=== PATIENT | male | born 1955 | race Caucasian/White ===

== ENCOUNTER → 2025-05-01 11:59 | Outpatient (REF) | payer MEDICARE, SELFPAY ==
[2025-05-01 13:37] LABS: % Basophils 1.2 % (0-2); % Eosinophils 1.9 % (0-6); % Immature Granulocytes 0.9 % (0-0.5); % Lymphocytes 26.3 % (20.5-51.1); % Monocytes 15.5 % (1.7-9.3); % Neutrophils 54.2 % (42.2-75.2); Absolute Eosinophils 0.1 10^3/uL (0-0.7); Absolute Lymphocytes 0.9 10^3/uL (1.2-3.4); Absolute Monocytes 0.5 10^3/uL (0.1-0.6); Absolute Neutrophils 1.8 10^3/uL (1.4-6.5); Hemoglobin 10.8 g/dL (13.0-18.0); Mean Corp Hgb Conc. 30.9 g/dL (33.0-37.0); Mean Corpuscular Hgb 33.4 pg (27.0-31.0); Mean Corpuscular Volume 108.4 fL (80.0-94.0); Mean Platelet Volume 10.4 fL (7.4-10.4); Nucleated Red Blood Cells % 0 % (-); Platelet Count 465 10^3/uL (130-400); Red Blood Cell Count 3.23 10^6/uL (4.70-6.10); Red Cell Dist. Width 15.9 % (11.5-14.5); White Blood Cell Count 3.2 10^3/uL (4.8-10.8)
[2025-05-01 13:46] LABS: INR 1.49; PT 18.2 Sec (11.4-14.6)
[2025-05-01 13:51] LABS: ALT (SGPT) 11 U/L (0-50); AST (SGOT) 14 U/L (17-59); Alkaline Phosphatase 55 U/L (38-126); Blood Urea Nitrogen 17 mg/dl (9-20); Calcium 9.1 mg/dl (8.4-10.2); Carbon Dioxide 26 mmol/L (22-30); Chloride 108 mmol/L (98-107); Glucose 104 mg/dl (70-99); Potassium 4.7 mmol/L (3.5-5.1); Sodium 139 mmol/L (135-145); Total Bilirubin 0.6 mg/dl (0.2-1.3); Total Protein 6.4 g/dl (6.3-8.2); eGFR > 60.00
== END ==
LOC: REG 11:59
PROVIDERS: ATTENDING PHYSICIAN Internal Medicine Cardiovascular Disease; FAMILY PHYSICIAN Family Medicine; OTHER PHYSICIAN Internal Medicine Interventional Cardiology
DX: I48.0 Paroxysmal atrial fibrillation (principal); Z01.818 Encounter for other preprocedural examination
CPT/HCPCS: 36415; 80053; 83735; 85025; 85610; 86850; 86900; 86901; 93005

== ENCOUNTER 2025-05-07 05:54 | Day surgery (SDC) | payer MEDICARE, SELFPAY ==
[2025-05-01 12:58] VITALS: BMI 25.1
[2025-05-07] VITALS (12 sets, daily range): BP systolic 114–165; BP diastolic 52–76; BMI 24.6
[2025-05-07 06:39] LABS: Glucose - Point of Care 89 mg/dl (70-99)
[2025-05-07 07:12] LABS: INR 1.91; PT 22.1 Sec (11.4-14.6)
[2025-05-07 08:25] LABS: ACT-LR - POC 306 Seconds (116-155)
[2025-05-07 08:46] LABS: ACT-LR - POC 306 Seconds (116-155)
[2025-05-07 09:09] LABS: ACT-LR - POC 395 Seconds (116-155)
--- NOTE | 2025-05-07 09:51 | ITS.CL.ABL ---
Alcohol Rubber - Ablation
Ablation
Procedure Report:
ELECTROPHYSIOLOGIC STUDY AND POSSIBLE ABLATION
DATE: 05/07/25
Primary Care Provider: Dr Saira Olsen
Primary Policy Writer: Dr Richie Eng
INDICATION:
Symptomatic Atrial Fibrillation.
Paroxysmal
HISTORY: See H and P.
Symptomatic AF, poorly controlled with attempted medical therapy
He has a history of heart failure with preserved ejection fraction, non-ST segment elevation myocardial infarction with known proximal LAD and distal RCA disease treated with drug-eluting stent of the LAD (October 2024 at [facility]
system) and medical management of a small RCA, mechanical ([facility], 2002)�aortic valve replacement, chronic anticoagulation with warfarin, solitary kidney status post renal transplant in the past and continuing on immunosuppressive therapy as per
nephrology, stage III chronic kidney disease, diabetes mellitus, HTN and atrial fibrillation.
He has symptomatic paroxysmal atrial fibrillation.
Recurrences of atrial fibrillation have been associated with decompensated heart failure as well as shortness of breath and chest pain resulting in emergency room visits.� Rates in atrial fibrillation have been rapid at times.s delivery of atrial
decremental extrastimuli down to atrial ERP failed to induce any sustained arrhythmias.
HAS-BLED: 3
Age
Abnormal Renal Function
Antiplatelet Therapy
CHADSVASc: 5
HFpEF
HTN
Age
DM
Vascular Dz: prior MT
PRESENTING RHYTHM: SR
HISTORY: See H and P.
Symptomatic AF, poorly controlled with attempted medical therapy.
ANTICOAGULATION: Warfarin with goal INR between 2 and 3
'TIME-OUT': called and confirmed.
SEDATION/ANESTHESIA: provided via the anesthesia department using general anesthesia.
PROCEDURE:
Ultrasound Guidance with real-time visualization of needle insertion and vessel patency performed by me for femoral venous Vascular Access.
Under real-time US guidance, the needle was advanced with negative pressure into the vein. The needle was seen entering the vessel lumen with a good return of dark red flow, the syringe was removed, non-pulsatile, dark red blood low was noted and
the wire was passed without difficulty, then the needle was removed. US confirmed the wire was in the vein, not going into an artery,
Images were taken and saved for the patient's permanent record. Imaging findings typical femoral venous anatomy. Direct visualization of needle puncture into the femoral vein was observed and recorded.
A decapolar CS catheter was placed within the CS for mapping and pacing.
The intracardiac ultrasound catheter was positioned in the RA for continuous intracardiac ultrasound imaging.
Heparin bolus and infusion to target ACT at 300 -350 seconds was administered. Transseptal puncture was performed. This entailed advancing a sheath with dilator into the superior vena cava and withdrawing both (monitoring intracardiac ultrasound,
fluoroscopy and tip pressure) with the tip oriented toward the atrial septum. The fossa ovalis was engaged (indicated by sudden displacement of the sheath tip as well as tenting of the fossa seen on intracardiac ultrasound).
Transseptal puncture was performed. Left atrial catheter position was confirmed by echocardiographic imaging, pressure monitoring (LA mean pressure 18 mm Hg) and fluoroscopy. The sheath was advanced over the dilator and positioned in the left
atrium.
The Dev4Xa multipolar mapping/ablation Sphere-9 catheter was positioned through the transseptal sheath for high density mapping.
Geometry and voltage mapping was performed using the Dev4Xa mapping system for three-dimensional electroanatomical mapping.
Catheter positioning was guided and confirmed using both I.C.E. and fluoroscopy.
Ablation strategy included PVI as well as mapping for extra PV contributors to atrial fibrillation which would also be targeted if present.
High density electroanatomical three-dimensional mapping demonstrated a large antrum following into a left superior and left inferior pulmonary vein and 2 independent right sided pulmonary veins, right superior and right inferior pulmonary veins.
After accomplishing pulmonary venous isolation, mapping identified additional areas likely to be extra PV contributors to atrial fibrillation. These areas demonstrated patchy low voltage as well as complex fractionated electrograms. These areas can
be sites for the formation of rotors which can drive and maintain atrial fibrillation. These areas are known to be significant contributors to initiation and perpetuation of atrial fibrillation.
Additional energy applications/additional ablation sets targeted extra PV contributors to atrial fibrillation.
Targets for additional PFA ablation included:
LA posterior wall targeted with pulsed electric field energy isolating the posterior wall of the left atrium
After ablation of the posterior wall, target remained at the inferior/ floor of the LA and at the ligament of Kiran.
LA inferior floor as well as the ridge of tissue between the left atrial appendage and the left sided pulmonary veins (ligament of Kiran ) which were ablated using pulsed electric field energy eliminating the extra PV contributors to
atrial fibrillation.
Post ablation mapping finds entrance and exit block at each of the pulmonary veins (LSPV, LIPV, RSPV, RIPV), the LA posterior wall and at the additional lines at the that the targeted extra PV sites (LA inferior/floor line and the ligament of
Kiran) rendering the sites no longer able to contribute to atrial fibrillation.
Programmed electrostimulation including burst atrial pacing as well the delivery of decremental extrastimuli down to atrial effective refractory period and no sustained arrhythmias could be induced.
I.C.E. :
Pre-Ablation Post-Ablation
LVEF: 55 % 55 %
WMA: none none
Pericardial effusion: none none
COMPLICATIONS:
None
SUMMARY:
- Mapping and ablation to isolate the PVs resulting in electrical isolation of the pulmonary veins
- Additional AF ablation sets X 3 after PVI (LA posterior wall, Inf/floor of the LA posterior wall and the ligament of Kiran) resulting in elimination of the targeted extra PV contributors to atrial fibrillation (Post wall, Inf LA floor,
ligament of Kiran)
- 3-D Electroanatomical Mapping
- Intracardiac Ultrasound
- Ultrasound guidance for vascular access
Post ablation, I discussed today's findings and results with the patient's , Liliana.
RECOMMENDATIONS:
- Observe in monitored bed.
- Maintain oral anticoagulation (warfarin with goal INR between 2 and 3).
Given mechanical aortic valve he requires lifelong warfarin
- Continue cardiovascular care with Dr. Richie Eng
Copy to:
Dr Saira Olsen
Dr Richie Eng
[2025-05-07 10:23] LABS: Glucose - Point of Care 120 mg/dl (70-99)
[2025-05-07] MEDS: TYLENOL 650 MG PO (10:41)
--- NOTE | 2025-05-07 16:10 | W.PN.UPDATE ---
Update Note
Progress Note Update
Pt seen post PFA. Right groin site without ht/bleeding, oob ambulating, urinating without difficulty. Post EKG NSR 90s w/1st deg AVB, PACs, no acute changes. INR this morning 1.91. Warfarin clinic at [facility] contacted and they noted that patient is
taking warfarin 2.5mg -, and 5mg on . At their instruction, pt will take 7.5mg tonight and resume regular dosing tomorrow, and get INR on 05/10 as per usual. Reviewed with pt and Dr. Charles. Followup with Dr. Eng in
June as scheduled. Home today if groin site/tele remain stable.
== END 2025-05-07 13:58 | disposition home or self-care (01) ==
LOC: CATH 05:54
PROVIDERS: ATTENDING PHYSICIAN Internal Medicine Cardiovascular Disease; FAMILY PHYSICIAN Family Medicine; OTHER PHYSICIAN Internal Medicine Interventional Cardiology
DX: I48.0 Paroxysmal atrial fibrillation (principal); I13.0 Hypertensive heart and chronic kidney disease with heart failure and stage 1 through stage 4 chronic kidney disease, or unspecified chronic kidney disease; I50.32 Chronic diastolic (congestive) heart failure; I25.10 Atherosclerotic heart disease of native coronary artery without angina pectoris; Z95.5 Presence of coronary angioplasty implant and graft; I25.2 Old myocardial infarction; Z94.0 Kidney transplant status; E11.22 Type 2 diabetes mellitus with diabetic chronic kidney disease; K21.9 Gastro-esophageal reflux disease without esophagitis; F41.9 Anxiety disorder, unspecified; F32.A Depression, unspecified; Z90.49 Acquired absence of other specified parts of digestive tract; Z79.02 Long term (current) use of antithrombotics/antiplatelets; Z79.899 Other long term (current) drug therapy; Z79.624 Long term (current) use of inhibitors of nucleotide synthesis; Z79.01 Long term (current) use of anticoagulants; N18.30 Chronic kidney disease, stage 3 unspecified; E78.5 Hyperlipidemia, unspecified
CPT/HCPCS: C1766; C1730; C1892; C1733; C1894; 82962; 85347; 85610; 86900; 86901; 93005; 93656; 93657

== ENCOUNTER 2025-06-01 16:05 | Inpatient (IN) | payer MEDICARE, SELFPAY ==
[2025-06-01] VITALS (11 sets, daily range): BP systolic 146–180; BP diastolic 49–86; BMI 24.6
--- NOTE | 2025-06-01 11:36 | W.PN.CARDCBS ---
Today's Communication / Plan
-
LH today
continue plavix
resume warfarin tonight
creat in AM post dye load
Impression / Plan
-
This is the H&P summary.
Full H&P scanned into chart.
PCP: Kasey Olsen DO
CDY: Richie Eng MD
69 y/o, PMH AF w/recent PFA at (05/07/25), CAD/NSTEMI w/prior LAD PCI (10/2024), mechanical AVR (2001) on chronic warfarin, prior TIA/CVA, HTN, DM, GERD, Kidney transplant (2011 failed, 2014).
Presented to [facility] ER w/left sided chest pain radiating to LUE, intermittent x24 hours. EKG NSR w/ NSSTT abn noted. Peak HS troponin 507, normal CPK. Started on IV heparin. Presenting INR 1.9. Also on plavix for PCI <12 months ago.
Echo 05/30- preserved LVSF w/regional HK of septal, lateral, anterolateral segments at apex, EF 55%, mod CLVH, sev dilated LA, mild-mod MR, mild-mod IN, functioning [facility] AV w/trace-mild AR, PG 29/MG 12.9, AMALIA 1.25cm2, small secundum ASD w/L-R flow
Transferred for [facility] today.
IMPRESSION:
NSTEMI
CAD/NSTEMI, s/p LAD PCI (10/2024, at [facility])
AFib, s/p PFA (05/07/25)
AVR, [facility] (2001)
Kidney transplant x2 (2011 failed, Redo 2014)
HTN
GERD
DM
PLAN:
CAD w/prior LAD stent 10/2024, now ruled in for NSTEMI
LHC today
post renal transplant- monitor creatinine post dye load- creat 1.1/GFR >60 today
continue plavix for prior PCI <12 months ago
echo results noted
cardiac rehab
Mechanical AVR- INR subtherapeutic at [facility]- 1.9 (warfarin- 2.5mg -, 5mg -)
on heparin for nstemi- will transition to warfarin post cath- INR 1.5 today- consider lovenox bridge until therapeutic
INR goal 2-3- followup warfarin clinic at [facility] next week
Followup at [facility] next week for INR and post hospital followup
Progress Note - Dock Attendant
Subjective
Date of Service: June 01, 2025
[2025-06-01 14:09] LABS: Glucose - Point of Care 112 mg/dl (70-99)
[2025-06-01 15:15] LABS: ACT-LR - POC 218 Seconds (116-155)
[2025-06-01 15:32] LABS: ACT-LR - POC 363 Seconds (116-155)
--- NOTE | 2025-06-01 15:50 | ITS.CL.ANGIO ---
Addendum entered and electronically signed by Liseth Eng MD 06/01/25 17:30:
Left Anterior Descending: The left anterior descending artery has a very long stent in the proximal segment. There is severe 90% in-stent restenosis into areas of the proximal stent involving the leading edge. The distal stent has mild
nonobstructive luminal irregularities. There is a smooth 50% stenosis just beyond the distal stent edge in the mid LAD. The distal LAD is a large vessel that wraps around the apex and feeds a significant portion of the distal inferior wall. There
is JEANNE-3 flow in the apical LAD. There are 2 major diagonal branches that are widely patent.
Original Note:
K 12 Principal - Angioplasty
Angioplasty
Procedure Report:
LEFT HEART CATHETERIZATION
Date of Procedure: June 01, 2025
Procedures performed:
1: Coronary angiography
2: Left ventricular hemodynamic assessment
3: Percutaneous coronary intervention of the left anterior descending artery with intravascular ultrasound-guided stent placement of the proximal LAD with a 4.0 x 30 mm Pool drug-eluting stent postdilated with a 4.0 mm diameter noncompliant balloon
distally and a 4.5 mm diameter noncompliant balloon proximally
Primary Care Provider: Dr. Saira Olsen
Primary Duplicating Machine Operator: Myself
INDICATION: The patient is a 69-year-old man with a complex past medical history including mechanical aortic valve replacement and prior renal transplant. He underwent LAD stenting in November for a non-STEMI at [facility]. He returns
with recurrent anginal symptoms similar to his prior non-STEMI and rules in for a another non-STEMI. Echocardiography performed at [facility] performed 2 days ago showed preserved LV systolic function but a area of regional wall motion
abnormality in the LAD territory. He has been chest pain-free since Wednesday night.
ACCESS: The patient was prepped and draped in usual sterile fashion. A 6 Haitian sheath was placed in the right common femoral artery using the Seldinger over the wire technique. The right radial pulse was diminished and unsuitable for access.
HEMODYNAMIC FINDINGS (mmHg):
LV(s/d,EDP): Valve not crossed
Ao(s/d,m): 143/48, 82
ANGIOGRAPHIC FINDINGS:
Single-plane Left Ventriculography in RIVERA Projection: Not done
Coronary Angiography:
Dominance: Right
Left Main: Short, normal
Left Anterior Descending: The left anterior descending artery has a very long stent in the proximal segment. There is severe in-stent restenosis into areas of the proximal stent involving the leading edge. The distal stent has mild nonobstructive
luminal irregularities. There is a smooth 50% stenosis just beyond the distal stent edge in the mid LAD. The distal LAD is a large vessel that wraps around the apex and feeds a significant portion of the distal inferior wall. There is JEANNE-3 flow
in the apical LAD. There are 2 major diagonal branches that are widely patent.
Left Circumflex: The left circumflex is a relatively large nondominant system that gives rise to 2 major obtuse marginal branches. These vessels are widely patent with moderate nonobstructive luminal irregularities.
Right Coronary: The right coronary artery is a medium caliber vessel that gives rise to a small posterior descending artery and posterior left ventricular branch system. There are mild luminal irregularities throughout the AV groove with a smooth
30% stenosis in the midportion followed by a focal 60% distal lesion. There is JEANNE-3 flow in all distal vessels.
Percutaneous Coronary Intervention (PCI): In light of his clinical presentation and the above angiographic findings, I elected to proceed with a PCI of the LAD. The patient was pretreated with aspirin and clopidogrel. Unfractionated heparin was
given. A 6 Haitian XB 3.5 guiding catheter was used to engage the left main. A Hi-Torque floppy wire was easily advanced across the lesion. Intravascular ultrasound imaging was used to size the length of significant in-stent restenotic disease as
well as the diameter of the true lumen. A 4.0 x 30 mm Napoleon drug-eluting stent was placed just proximal to the previous proximal stent edge. Intravascular ultrasound imaging was again performed after post dilation with a 4.0 mm diameter
noncompliant balloon at 18 candis. I elected to redilate the most proximal portion of the stent with a 4.5 mm diameter noncompliant balloon at 18 candis.
FINAL RESULT: 0% in-stent residual stenosis with an outstanding angiographic result and JEANNE-3 flow in all vessels.
Fluoroscopy Time (min): 11
Radiation Dose (mGy): 663
DAP (Gy.cm2): 41
Closure device: 6 Haitian Angio-Seal to right common femoral artery.
Complications: None.
ASSESSMENT:
1: Successful PCI of the LAD guided with intravascular ultrasound imaging and placement of drug-eluting stent as described above.
2: Unchanged circumflex and RCA nonobstructive disease.
CONCLUSIONS and RECOMMENDATIONS:
1: Routine post PCI and post non-STEMI medical therapy and management. Will plan to give triple therapy with Coumadin, clopidogrel, and aspirin 81 mg daily for a week. Continue Coumadin for INR of 2-3 and clopidogrel 75 mg daily for a year.
2: Medical therapy for coronary artery disease.
Liseth Eng M.D.
--- NOTE | 2025-06-01 16:33 | CM ---
Reviewed chart. Met with Mr. Shoemaker to review discharge plans. He states prior to admission he resides with his spouse in a three story home with one step to enter. He states he has a full flight of steps to get to bedroom/full bathroom. He
states he has a powder room on the first floor. He states prior to admission he was independent with ambulation and adls. He states he does not have any DME in the home. He states he has a prescription plan. Medical work-up in progress. The
discharge plan is to return home with his spouse when medically stable.
--- NOTE | 2025-06-01 16:36 | PTCARENOTE ---
received patient from systems testing laboratory technician, awake, able to answer admission questions. monitor shows NSR with PAC's, EKG obtained as ordered. VSS. right fem artery was angio sealed, no hematoma, no oozing, distal pulses only by Doppler bilaterally. INT in right
forearm from [facility] infusing NSS at 110cc/hr and INT is in left arm, also from [facility], flushes well. instructed patient on post cath protocol, patient verbalizes understanding. patient voices no concerns at this time. oriented to room and surroundings.
--- NOTE | 2025-06-01 16:51 | W.DS.TRANS ---
DC Summary - Surgical Scrub Technician
-
Discharge Instructions:
Discharge Diagnosis/Procedures NSTEMI, s/p angioplasty and stent to Left
Anterior Descending artery
Diet Low Cholesterol
Driving Restrictions No driving for 24 hours
Other Services Cardiac Rehab
Instructions:
Stand-Alone Forms: DC Instructions- Cath/EP Lab
Changes to Home Medications: No
Discharge Medications:
DC Medications w/original date entered in [facility]
clopidogrel 75 mg tablet 75 mg PO DAILY 04/23/25
diltiazem HCl 360 mg capsule,24 hr,extended release 360 mg PO DAILY 04/23/25
esomeprazole magnesium 40 mg capsule,delayed release 40 mg PO DAILY 04/23/25
hydralazine 25 mg tablet 25 mg PO BID 04/23/25
hydroxyurea 500 mg capsule 500 mg PO DAILY 04/23/25
losartan 50 mg tablet 50 mg PO DAILY 04/23/25
mycophenolate sodium 180 mg tablet,delayed release 1,080 mg PO DAILY 04/23/25
tacrolimus 1 mg capsule, immediate-release 1 mg PO BID 04/23/25
warfarin 2.5 mg tablet 2.5 mg PO SUTUFRSA 04/23/25
warfarin 5 mg tablet 5 mg PO MOWETH 04/23/25
cetirizine 10 mg tablet 10 mg PO DAILY PRN allergies 06/01/25
cholecalciferol (vitamin D3) 50 mcg (2,000 unit) tablet 50 mcg PO DAILY 06/01/25
empagliflozin 10 mg tablet 10 mg PO DAILY 06/01/25
escitalopram oxalate 10 mg tablet 10 mg PO DAILY 06/01/25
magnesium 250 mg tablet 250 mg PO DAILY 06/01/25
Home Medication Changes
Pending Results: No
[2025-06-01] MEDS: COUMADIN 10 MG PO (17:54)
[2025-06-01] MEDS: PROGRAF 1 MG PO (19:38)
[2025-06-01] MEDS: APRESOLINE 25 MG PO (19:38)
[2025-06-01] MEDS: TYLENOL 650 MG PO (22:12)
--- NOTE | 2025-06-01 22:58 | PTCARENOTE ---
received patient at the change of shift. AAOx3. assisted patient oob to the bathroom. steady on his feet. denies any lightheadedness/dizziness. denies any cp/sob. SR with PACs on tele- 80s-90s. increased rates with movement. bp stable. R groin site
intact. soft. patient complains of mild pain at the site- Tylenol given, see mar. + doppler pulses. reviewed plan of care with patient and verbalized understanding. call briggs within reach. makes needs known.
[2025-06-02 03:31] VITALS: BP 150/63
[2025-06-02] MEDS: TYLENOL 650 MG PO (04:15)
[2025-06-02 04:32] LABS: INR 1.21; PT 15.6 Sec (11.4-14.6)
[2025-06-02 04:51] LABS: Blood Urea Nitrogen 12 mg/dl (9-20); Calcium 8.7 mg/dl (8.4-10.2); Carbon Dioxide 22 mmol/L (22-30); Chloride 108 mmol/L (98-107); Estimated Creatinine Clearance 67 ml/min; Glucose 91 mg/dl (70-99); HDL Cholesterol 30 mg/dl; LDL Cholesterol, Calculated 88 mg/dl; Potassium 5.2 mmol/L (3.5-5.1); Sodium 137 mmol/L (135-145); Very Low Density Lipoprotein 29 mg/dl (0-30); eGFR > 60.00
[2025-06-02 05:04] LABS: Hematocrit 32.8 % (39.0-52.0); Hemoglobin 10.6 g/dL (13.0-18.0); Mean Corp Hgb Conc. 32.3 g/dL (33.0-37.0); Mean Corpuscular Volume 105.5 fL (80.0-94.0); Platelet Count 638 10^3/uL (130-400); Red Cell Dist. Width 14.6 % (11.5-14.5)
[2025-06-02 08:05] VITALS: BP 161/77
[2025-06-02 08:06] VITALS: BP 166/64
[2025-06-02 08:08] VITALS: BP 165/64
[2025-06-02] MEDS: LEXAPRO 10 MG PO (08:10)
[2025-06-02] MEDS: PROTONIX 40 MG PO (08:10)
[2025-06-02] MEDS: HYDREA 500 MG PO (08:10)
[2025-06-02] MEDS: COZAAR 50 MG PO (08:10)
[2025-06-02] MEDS: APRESOLINE 25 MG PO (08:10)
[2025-06-02] MEDS: PROGRAF 1 MG PO (08:10)
[2025-06-02] MEDS: CARDIZEM CD 360 MG PO (08:10)
[2025-06-02] MEDS: PLAVIX 75 MG PO (08:11)
[2025-06-02] MEDS: FARXIGA 10 MG PO (08:11)
--- NOTE | 2025-06-02 09:06 | W.PN.CARDCBS ---
Addendum entered and electronically signed by Kole Salgado MD 06/02/25 09:45:
69-year-old man who underwent PCI yesterday
PMH: PCI/HAILE LAD October 2024, mechanical AVR, hypertension, GERD, TIA/CVA, history of renal transplant, 2014, [place] esophagus, diabetes, hypercholesterolemia, PAF, status post pulsed field ablation April 2025
166/64, pulse 86, respirations 16, afebrile, weight is 73.5 kg head neck exam unremarkable lungs are clear, intermittently irregular rate and rhythm, abdomen benign, groin puncture site looks good, no edema, pulses palpable.
White count 2.7, MCV 105, hemoglobin 10.6, potassium 5.2, BUN and creatinine are 12 and 1.0
ECG today sinus rhythm, PACs, prior inferior myocardial infarction, anterior DE, nonspecific ST and T wave changes
Impression:
See below as per Ondina Ruby. Reviewed in detail and agree, unless otherwise specified
Plan:
He appears stable status post PCI of the proximal LAD with a 4.0 x 30 mm Pool drug-eluting stent
EKG and creatinine are acceptable
Exam unremarkable
Okay for discharge. Follow-up arranged.
Original Note:
Today's Communication / Plan
-
Triple therapy with warfarin, Plavix, and aspirin x 1 week, then warfarin and Plavix
-Patient to get warfarin 10 mg again tonight, 5 mg tomorrow then follow-up with Dr. Eng's office on 06/04/2025
Okay for discharge
Impression / Plan
-
PCP: Kasey Olsen DO
CDY: Richie Eng MD
69 y/o, PMH AF w/recent PFA at (05/07/25), CAD/NSTEMI w/prior LAD PCI (10/2024), mechanical AVR (2001) on chronic warfarin, prior TIA/CVA, HTN, DM, GERD, Kidney transplant (2011 failed, 2014).
Presented to [facility] ER w/left sided chest pain radiating to LUE, intermittent x24 hours. EKG NSR w/ NSSTT abn noted. Peak HS troponin 507, normal CPK. Started on IV heparin. Presenting INR 1.9. Also on plavix for PCI <12 months ago.
Echo 05/30- preserved LVSF w/regional HK of septal, lateral, anterolateral segments at apex, EF 55%, mod CLVH, sev dilated LA, mild-mod MR, mild-mod ND, functioning mech AV w/trace-mild AR, PG 29/MG 12.9, AMALIA 1.25cm2, small secundum ASD w/L-R flow
Transferred for [facility] today.
IMPRESSION:
NSTEMI 06/01/2025
Status post successful PCI of the LAD with placement of HAILE 06/01/2025
CAD/NSTEMI, s/p LAD PCI (10/2024, at [facility])
AFib, s/p PFA (05/07/25)
AVR, [facility] (2001) on warfarin
Kidney transplant x2 (2011 failed, Redo 2014)
HTN
GERD
DM
PLAN:
CAD w/prior LAD stent 10/2024, now ruled in for NSTEMI
-Status post placement of HAILE to LAD for in-stent restenosis of LAD
post renal transplant- monitor creatinine post dye load- creat 1.1/GFR >60 pre cath. Creat 1.0 06/02/2025 post cath
- Plan for triple therapy with warfarin, Plavix, and aspirin 81mg for 1 week then dual therapy with warfarin and Plavix
echo results noted
cardiac rehab
Mechanical AVR- INR subtherapeutic at [facility]- 1.9 (warfarin- 2.5mg , 5mg )
was on heparin for nstemi- transition to warfarin post cath- INR 1.5 06/01, INR 1.2 06/02. Rec'd Warfarin 10 mg on 06/01/2025. Case discussed with Dr. Eng. Patient to get warfarin 10 mg tonight, 5 mg on 06/03/2025, then follow-up with his office
on 06/04/2025. Okay for discharge today on this regimen
INR goal 2-3- followup warfarin clinic at [facility] next week
Followup at [facility] next week for INR and post hospital followup
Progress Note - Public Policy Manager
Subjective
Date of Service: June 02, 2025
Status post HAILE to LAD for in-stent stenosis of previous placed LAD stent
Feels well, no chest pain, shortness of breath
No discomfort at right groin puncture site
Anxious to go home
Objective
Labs:
06/02/25 03:45
06/02/25 03:45
Labs
Hgb 10.6 g/dL (13.0-18.0) L 06/02/25 03:45
Hct 32.8 % (39.0-52.0) L 06/02/25 03:45
Plt Count 638 10^3/uL (130-400) H 06/02/25 03:45
PT 15.6 Sec (11.4-14.6) H 06/02/25 03:45
INR 1.21 06/02/25 03:45
Sodium 137 mmol/L (135-145) 06/02/25 03:45
Potassium 5.2 mmol/L (3.5-5.1) H 06/02/25 03:45
BUN 12 mg/dl (9-20) 06/02/25 03:45
Creatinine 1.0 mg/dL (0.7-1.3) 06/02/25 03:45
Glucose 91 mg/dl (70-99) 06/02/25 03:45
Vital Signs and I&O:
Vital Signs
Temp Pulse Resp BP Pulse Ox
97.4 F 86 16 166/64 99
06/02/25 08:03 06/02/25 08:06 06/02/25 08:03 06/02/25 08:06 06/02/25 08:05
Vital Signs
Temp Pulse Resp BP Pulse Ox
97.4 F 86 16 166/64 99
06/02/25 08:03 06/02/25 08:06 06/02/25 08:03 06/02/25 08:06 06/02/25 08:05
Intake & Output
05/31/25 06/01/25 06/02/25 06/03/25
06:59 06:59 06:59 06:59
Intake Total 800 / 800
Output Total 300 / 300
Balance 500 / 500
Physical Exam
Physical Exam
GEN: No distress, awake, Ox3
HEENT: supple, anicteric, mmm
LUNGS: CTA, no wheezes/rales
CV: Reg, S1/S2, 1/6 syst LSB, no murmur
ABD: soft, BS+, NT/ND
EXT: No edema. Right groin puncture site no hematoma or bruit, site covered with dressing
NEURO: Gross non-focal
SKIN: No rash
--- NOTE | 2025-06-02 09:17 | W.DS.TRANS ---
DC Summary - Explosive Man
-
Discharge Instructions:
Discharge Diagnosis/Procedures NSTEMI, s/p angioplasty and stent to Left
Anterior Descending artery
Diet Low Cholesterol
Driving Restrictions No driving for 24 hours
Other Services Cardiac Rehab
Instructions:
Stand-Alone Forms: DC Instructions- Cath/EP Lab
Changes to Home Medications: Yes
Discharge Medications:
DC Medications w/original date entered in [employer]
clopidogrel 75 mg tablet 75 mg PO DAILY 04/23/25
diltiazem HCl 360 mg capsule,24 hr,extended release 360 mg PO DAILY 04/23/25
esomeprazole magnesium 40 mg capsule,delayed release 40 mg PO DAILY 04/23/25
hydralazine 25 mg tablet 25 mg PO BID 04/23/25
hydroxyurea 500 mg capsule 500 mg PO DAILY 04/23/25
losartan 50 mg tablet 50 mg PO DAILY 04/23/25
mycophenolate sodium 180 mg tablet,delayed release 1,080 mg PO DAILY 04/23/25
tacrolimus 1 mg capsule, immediate-release 1 mg PO BID 04/23/25
warfarin 2.5 mg tablet 2.5 mg PO SUTUFRSA 04/23/25
warfarin 5 mg tablet 5 mg PO MOWETH 04/23/25
cetirizine 10 mg tablet 10 mg PO DAILY PRN allergies 06/01/25
cholecalciferol (vitamin D3) 50 mcg (2,000 unit) tablet 50 mcg PO DAILY 06/01/25
empagliflozin 10 mg tablet 10 mg PO DAILY 06/01/25
escitalopram oxalate 10 mg tablet 10 mg PO DAILY 06/01/25
magnesium 250 mg tablet 250 mg PO DAILY 06/01/25
aspirin 81 mg capsule 81 mg PO DAILY 7 days #1 cap 06/02/25
warfarin 10 mg tablet 10 mg PO ONCE #1 tab 06/02/25
Home Medication Changes
add aspirin 81 mg daily for one week only
Take Warfarin 10 mg tonight only. Take Warfarin 5 mg on 06/03/2025. Call Dr Eng's office on 06/04/2025 for further dosing instructions
Pending Results: No
Total time spent discharging patient (in min): 25
[2025-06-02 10:30] VITALS: BP 144/76
--- NOTE | 2025-06-02 11:50 | PTCARENOTE ---
IV and tele removed. Discharge instructions reviewed w/ pt and verbalizes understanding. Belongings collected and sent home w/ pt. Escorted via WC and staff assist to home.
--- NOTE | 2025-06-02 12:36 | W.PN.UPDATE ---
Update Note
Progress Note Update
Discharge summary dictated but I did not get a confirmation number.
== END 2025-06-02 11:51 | disposition home or self-care (01) | DRG 321 ==
LOC: IVU 16:05
PROVIDERS: Nurse Practitioner; ADMITTING PHYSICIAN Internal Medicine Interventional Cardiology; ATTENDING PHYSICIAN Internal Medicine Interventional Cardiology; FAMILY PHYSICIAN Family Medicine
PROC: B2111ZZ Fluoroscopy of Multiple Coronary Arteries using Low Osmolar Contrast (ICD-10-PCS; 2025-06-01)
PROC: 4A023N7 Measurement of Cardiac Sampling and Pressure, Left Heart, Percutaneous Approach (ICD-10-PCS; 2025-06-01)
PROC: B2151ZZ Fluoroscopy of Left Heart using Low Osmolar Contrast (ICD-10-PCS; 2025-06-01)
PROC: 027034Z Dilation of Coronary Artery, One Artery with Drug-eluting Intraluminal Device, Percutaneous Approach (ICD-10-PCS; 2025-06-01)
DX: T82.855A Stenosis of coronary artery stent, initial encounter (principal); I21.4 Non-ST elevation (NSTEMI) myocardial infarction; I21.A9 Other myocardial infarction type; Z94.0 Kidney transplant status; I25.10 Atherosclerotic heart disease of native coronary artery without angina pectoris; I48.91 Unspecified atrial fibrillation; I10 Essential (primary) hypertension; E11.9 Type 2 diabetes mellitus without complications; K21.9 Gastro-esophageal reflux disease without esophagitis; Y83.1 Surgical operation with implant of artificial internal device as the cause of abnormal reaction of the patient, or of later complication, without mention of misadventure at the time of the procedure; Y92.9 Unspecified place or not applicable; Z79.01 Long term (current) use of anticoagulants; Z86.73 Personal history of transient ischemic attack (TIA), and cerebral infarction without residual deficits; Z95.2 Presence of prosthetic heart valve; I25.2 Old myocardial infarction
CPT/HCPCS: 80048; 80061; 82962; 85027; 85347; 85610; 92978; 93005; 93454; C1725; C1753; C1760; C1769; C1874; C1887; C1894; C9600; Q9967

== ENCOUNTER 2025-08-21 16:20 | Inpatient (IN) | payer MEDICARE, SELFPAY ==
[2025-08-21] VITALS (10 sets, daily range): BP systolic 150–186; BP diastolic 65–96; BMI 27.0; BMI 28.1; BMI 26.7
--- NOTE | 2025-08-21 13:33 | ED.GENMED ---
History of Present Illness
<Sanya Braswell PA-C - Last Filed: 08/21/25 19:00>
General
Chief Complaint: Breathing Problem
Time Seen by Provider: 08/21/25 13:22
History of Present Illness
History of Present Illness:
69-year-old male with history of CAD, LAD PCI in 2023 (repeat stenting in 2024), mechanical AVR 2001, prior stroke, hypertension, diabetes, GERD, and renal transplant x 2 who presents to the emergency department for evaluation of shortness of breath
and weight gain over the past 5 days. Reports significant orthopnea and dyspnea on exertion with approximately 12 to 15 pound weight gain in the past month despite actively trying to lose weight. Denies chest pain or fever at this time.
Review of Systems
<Sanya Braswell PA-C - Last Filed: 08/21/25 19:00>
Review of Systems
Allergies reviewed?: Yes
All Other Systems: ROS reviewed and negative except as documented in HPI and ROS
Phy Exam
<GOMEZ Walter Last Filed: 08/21/25 19:00>
Physical Exam
Physical Exam:
GEN: Well appearing, NAD, WDWN
HEENT: Oral mucosa moist, no scleral icterus, positive JVD
Cardiac: Regular rate and rhythm, mechanical click compatible with valve replacement
Lung: Tachypneic with accessory muscle use and diffuse expiratory crackles
MSK: No gross deformity or injuries, moderate bilateral lower extremity edema
Skin: Good color, no pallor or jaundice, no rashes
Neuro: AO x3, moves all extremities freely
Psych: Calm, cooperative
Scores
<Sanya Braswell PA-C - Last Filed: 08/21/25 19:00>
Heart Failure Risk
Heart Failure Risk Score: Yes
History of Stroke or TIA: No
History of intubation for respiratory distress: No
Heart rate on ED arrival >/= 110: No
SaO2 <90% on arrival on room air: Yes
HR >/=110 during 3min walk test (or too ill to perform test): No
ECG has acute ischemic changes: No
Urea >/=12mmol/L (BUN 33.6mg/dL): No
Serum CO2>/=35mmol/L: No
Troponin I or T elevated to [place] Level (0.4mg/dL): No
NT-proBNP >/=5,000ng/L (5,000pg/ml): No
HF Risk Score: 1
Admission Status: MEDIUM RISK 5.1% Consider observation or discharge to home with homecare & f/u visit to PCP/[facility] Worker, or SNF for treatment
Course
<Sanya Braswell PA-C - Last Filed: 08/21/25 19:00>
Orders/Labs/Results
Orders:
Orders
08/21/25 12:54
EKG [Electrocardiogram (*1)] Urgent
Reason for Study: Shortness of Breath
EKG- Treatment ONCE
08/21/25 13:32
CR Chest - 2 Views Urgent
Comment:
Reason For Exam: SOB
08/21/25 13:45
Complete Blood Count/No Diff Urgent
NT-proBNP Urgent
Troponin I Urgent
08/21/25 13:51
Basic Metabolic Panel Urgent
Prothrombin Time Urgent
08/21/25 14:30
Nitroglycerin Ointment [Nitro-Bid] 1 inch TOPICAL NOW STA
08/21/25 Dinner
2000 calorie (17 carb) Diabetic
At Your Request: Limited Participation
Does patient need a safe tray?: No
08/21/25 16:05
Admit/Transfer Patient As Directed
Co-Sign Provider:
Level of Care: Inpatient admission
Assign to:: Telemetry
Physician / Group: Jose Angel
Diagnosis: Acute on chronic CHF
Reason for Telemetry: Acute Heart Failure
Date to Stop Telemetry: 08/24/25
Time to Stop Telemetry: 11:00
Reason for Hospitalization: IV Lasix, cardiology consult
Expected length of stay greater than two midnights?: Yes
ELOS- Estimated Length of Stay in days: 3
I certify the patient meets the requirements for IP care: Yes
08/21/25 16:06
PRN Pain Medication Management As Directed
May give lesser potent ordered pain med per pt: Yes
preference::
Protocol:: Medication orders for pain may be administered in a
manner that supports deferring to patient preference
when the pt is:
- Requesting an ordered lesser potent pain medication.
Least to most potent pain medications are defined
as: acetaminophen < NSAID < tramadol < opioids
(morphine, oxycodone, hydromorphone).
- Requesting a lesser dose of the same medication IF
ORDERED.
- Requesting a less intrusive route of administration
if both routes are prescribed by the provider (PO <
IV).
08/21/25 16:08
Code Status As Directed
Resuscitation Status: Do not resuscitate
Reached after discussion with pt or family/Healthcare POA: Yes
08/21/25 16:09
DNR Bracelet Application ONCE
08/21/25 16:15
Furosemide [Lasix] 40 mg IV NOW STA
08/21/25 16:18
Potassium Urgent
08/21/25 17:26
Acetaminophen [Tylenol] 650 mg PO Q6HPRN PRN mild pain
Dextrose 50%-Water [Dextrose 50% Syringe] 12.5 grams IV [id number] PRN
Glucagon [GlucaGen] 1 mg IM PRN PRN
Insulin Aspart Corrective Low [Novolog Flexpen-Low Resistance] See Protocol SC AC
Polyethylene Glycol Powder [Miralax] 17 grams PO DAILYPRN PRN constipation
08/21/25 17:26
Echo 2D MMode Color/Doppler [Echo 2D MMode Color/Doppler] Routine
Reason for Study: CHF
CARDIOLOGY CONSULT Routine
Consulting Provider: Jill Salas
Was physician already notified: Yes
Activity As Directed
Activity Level: With Assistance
Bedside Glucose Monitoring As Directed
Frequency: AC&HS
Additional Instructions:: Change to q6h if pt on TPN, tube feeding or not eating
I&O [Intake/ Output] As Directed
Frequency: q12h
08/21/25 18:00
Warfarin [Coumadin] 5 mg PO SuTuThSa@1800
08/21/25 20:00
HydrALAZINE [Apresoline] 25 mg PO BID
Mycophenolic Acid Dr [Myfortic Delayed Rel.] 540 mg PO BID
Tacrolimus [Prograf] 1 mg PO BID
08/22/25 06:00
CMP [Comprehensive Metabolic Panel] IN AM
Glycohemoglobin (HgbA1c) IN AM
INR [Prothrombin Time] IN AM
08/22/25 08:00
Cholecalciferol (Vitamin D3) [VITAMIN D3 (cholecalciferol)] 50 mcg PO DAILY
Clopidogrel Bisulfate [Plavix] 75 mg PO DAILY
Diltiazem Extended Release [Cardizem Cd] 360 mg PO DAILY
Furosemide [Lasix] 40 mg IV DAILY
Hydroxyurea [Hydrea] 500 mg PO DAILY
Losartan [Cozaar] 100 mg PO DAILY
Magnesium Oxide 400 mg PO DAILY
Pantoprazole [Protonix] 40 mg PO DAILY
Sertraline HCl [Zoloft] 25 mg PO DAILY
08/22/25 18:00
Warfarin [Coumadin] 2.5 mg PO MoWeFr@1800
08/23/25 06:00
CMP [Comprehensive Metabolic Panel] IN AM
INR [Prothrombin Time] IN AM
08/24/25 06:00
CMP [Comprehensive Metabolic Panel] IN AM
INR [Prothrombin Time] IN AM
08/24/25 11:00
DC Protocol for Telemetry ONCE
Abnormal Lab Results
08/21/25 08/21/25 08/21/25
13:45 13:51 16:18
WBC 4.4 L 10^3/uL
(4.8-10.8)
RBC 3.03 L 10^6/uL
(4.70-6.10)
Hgb 9.8 L g/dL
(13.0-18.0)
Hct 32.1 L %
(39.0-52.0)
MCV 105.9 H fL
(80.0-94.0)
MCH 32.3 H pg
(27.0-31.0)
MCHC 30.5 L g/dL
(33.0-37.0)
RDW 14.9 H %
(11.5-14.5)
Plt Count 833 H 10^3/uL
(130-400)
PT 31.7 H Sec
(11.4-14.6)
Potassium 5.2 H mmol/L
(3.5-5.1)
Chloride 116 H mmol/L
(98-107)
Carbon Dioxide 19 L mmol/L
(22-30)
BUN 21 H mg/dl
(9-20)
08/21/25 13:45
08/21/25 16:18
Vital Signs
Initial and Last Documented VS:
Initial Vital Signs
Temp Pulse Resp BP Pulse Ox
97.5 F 88 18 176/76 97
08/21/25 12:52 08/21/25 12:52 08/21/25 12:52 08/21/25 12:52 08/21/25 12:52
Last Documented Vital Signs
Temp Pulse Resp BP Pulse Ox
97.7 F 107 18 150/95 95
08/21/25 17:44 08/21/25 18:10 08/21/25 17:44 08/21/25 18:10 08/21/25 17:44
<Germán Boyd MD - Last Filed: 08/21/25 14:44>
Orders/Labs/Results
Orders:
Orders
08/21/25 12:54
EKG [Electrocardiogram (*1)] Urgent
Reason for Study: Shortness of Breath
EKG- Treatment ONCE
08/21/25 13:32
CR Chest - 2 Views Urgent
Comment:
Reason For Exam: SOB
08/21/25 13:45
Complete Blood Count/No Diff Urgent
NT-proBNP Urgent
Troponin I Urgent
08/21/25 13:51
Basic Metabolic Panel Urgent
Prothrombin Time Urgent
08/21/25 14:30
Nitroglycerin Ointment [Nitro-Bid] 1 inch TOPICAL NOW STA
08/21/25 Dinner
2000 calorie (17 carb) Diabetic
At Your Request: Limited Participation
Does patient need a safe tray?: No
08/21/25 16:05
Admit/Transfer Patient As Directed
Co-Sign Provider:
Level of Care: Inpatient admission
Assign to:: Telemetry
Physician / Group: Jose Angel
Diagnosis: Acute on chronic CHF
Reason for Telemetry: Acute Heart Failure
Date to Stop Telemetry: 08/24/25
Time to Stop Telemetry: 11:00
Reason for Hospitalization: IV Lasix, cardiology consult
Expected length of stay greater than two midnights?: Yes
ELOS- Estimated Length of Stay in days: 3
I certify the patient meets the requirements for IP care: Yes
08/21/25 16:06
PRN Pain Medication Management As Directed
May give lesser potent ordered pain med per pt: Yes
preference::
Protocol:: Medication orders for pain may be administered in a
manner that supports deferring to patient preference
when the pt is:
- Requesting an ordered lesser potent pain medication.
Least to most potent pain medications are defined
as: acetaminophen < NSAID < tramadol < opioids
(morphine, oxycodone, hydromorphone).
- Requesting a lesser dose of the same medication IF
ORDERED.
- Requesting a less intrusive route of administration
if both routes are prescribed by the provider (PO <
IV).
08/21/25 16:08
Code Status As Directed
Resuscitation Status: Do not resuscitate
Reached after discussion with pt or family/Healthcare POA: Yes
08/21/25 16:09
DNR Bracelet Application ONCE
08/21/25 16:15
Furosemide [Lasix] 40 mg IV NOW STA
08/21/25 16:18
Potassium Urgent
08/21/25 17:26
Acetaminophen [Tylenol] 650 mg PO Q6HPRN PRN mild pain
Dextrose 50%-Water [Dextrose 50% Syringe] 12.5 grams IV [id number] PRN
Glucagon [GlucaGen] 1 mg IM PRN PRN
Insulin Aspart Corrective Low [Novolog Flexpen-Low Resistance] See Protocol SC AC
Polyethylene Glycol Powder [Miralax] 17 grams PO DAILYPRN PRN constipation
08/21/25 17:26
Echo 2D MMode Color/Doppler [Echo 2D MMode Color/Doppler] Routine
Reason for Study: CHF
CARDIOLOGY CONSULT Routine
Consulting Provider: Jill Salas
Was physician already notified: Yes
Activity As Directed
Activity Level: With Assistance
Bedside Glucose Monitoring As Directed
Frequency: AC&HS
Additional Instructions:: Change to q6h if pt on TPN, tube feeding or not eating
I&O [Intake/ Output] As Directed
Frequency: q12h
08/21/25 18:00
Warfarin [Coumadin] 5 mg PO SuTuThSa@1800
08/21/25 20:00
HydrALAZINE [Apresoline] 25 mg PO BID
Mycophenolic Acid Dr [Myfortic Delayed Rel.] 540 mg PO BID
Tacrolimus [Prograf] 1 mg PO BID
08/22/25 06:00
CMP [Comprehensive Metabolic Panel] IN AM
Glycohemoglobin (HgbA1c) IN AM
INR [Prothrombin Time] IN AM
08/22/25 08:00
Cholecalciferol (Vitamin D3) [VITAMIN D3 (cholecalciferol)] 50 mcg PO DAILY
Clopidogrel Bisulfate [Plavix] 75 mg PO DAILY
Diltiazem Extended Release [Cardizem Cd] 360 mg PO DAILY
Furosemide [Lasix] 40 mg IV DAILY
Hydroxyurea [Hydrea] 500 mg PO DAILY
Losartan [Cozaar] 100 mg PO DAILY
Magnesium Oxide 400 mg PO DAILY
Pantoprazole [Protonix] 40 mg PO DAILY
Sertraline HCl [Zoloft] 25 mg PO DAILY
08/22/25 18:00
Warfarin [Coumadin] 2.5 mg PO MoWeFr@1800
08/23/25 06:00
CMP [Comprehensive Metabolic Panel] IN AM
INR [Prothrombin Time] IN AM
08/24/25 06:00
CMP [Comprehensive Metabolic Panel] IN AM
INR [Prothrombin Time] IN AM
08/24/25 11:00
DC Protocol for Telemetry ONCE
Abnormal Lab Results
08/21/25 08/21/25 08/21/25
13:45 13:51 16:18
WBC 4.4 L 10^3/uL
(4.8-10.8)
RBC 3.03 L 10^6/uL
(4.70-6.10)
Hgb 9.8 L g/dL
(13.0-18.0)
Hct 32.1 L %
(39.0-52.0)
MCV 105.9 H fL
(80.0-94.0)
MCH 32.3 H pg
(27.0-31.0)
MCHC 30.5 L g/dL
(33.0-37.0)
RDW 14.9 H %
(11.5-14.5)
Plt Count 833 H 10^3/uL
(130-400)
PT 31.7 H Sec
(11.4-14.6)
Potassium 5.2 H mmol/L
(3.5-5.1)
Chloride 116 H mmol/L
(98-107)
Carbon Dioxide 19 L mmol/L
(22-30)
BUN 21 H mg/dl
(9-20)
08/21/25 13:45
08/21/25 16:18
Vital Signs
Initial and Last Documented VS:
Initial Vital Signs
Temp Pulse Resp BP Pulse Ox
97.5 F 88 18 176/76 97
08/21/25 12:52 08/21/25 12:52 08/21/25 12:52 08/21/25 12:52 08/21/25 12:52
Last Documented Vital Signs
Temp Pulse Resp BP Pulse Ox
97.7 F 107 18 150/95 95
08/21/25 17:44 08/21/25 18:10 08/21/25 17:44 08/21/25 18:10 08/21/25 17:44
<Sanya Braswell PA-C - Last Filed: 08/21/25 19:00>
MDM/Problems Addressed
MDM/Problems Addressed:
Patient is clinically volume limited with weight gain and peripheral edema as well as vascular congestion with effusions on chest x-ray. Troponin is normal however BNP is elevated. Will start on diuretics and triple paste and admit for further
management of acute CHF
<Sanya Braswell PA-C - Last Filed: 08/21/25 19:00>
*Pulse Oximetry
SaO2: 97
Oxygen Mode of Delivery: Room air
Patient hypoxic: no
*Critical Care Note
Total Time (30-74mins, 75-104mins- exclusive of procedures): Not Applicable
ED Attending Note
<Sanya Braswell PA-C - Last Filed: 08/21/25 19:00>
-
Portions of this chart may have been created with voice recognition software.� Occasional wrong word or��sound alike� substitutions may have occurred due to the inherent limitations of voice recognition software.
<Germán Boyd MD - Last Filed: 08/21/25 14:44>
ED Attending Note
Patient seen and examined by attending physician: Yes
I performed the substantive portion of visit, reviewed & personally made and approve the management plan that is documented in note by myself or PAULA.: Yes
ED Attending Note:
Patient presents with progressive shortness of breath over the last 3 to 4 days. No chest pain no fever no cough no infectious symptoms.
Patient in minimal respiratory distress on supplemental oxygen. 96% on supplemental oxygen. Able to speak. Lungs with diffuse rales. Heart borderline tachycardia and regular no murmur. Abdomen soft and nontender. Moderate pitting edema
bilaterally.
Clinically this is heart failure. Workup in progress. Chest x-ray consistent. EKG is stable.
History of CAD atrial fibrillation non-STEMI [place] PCI
Patient warrants admission management of CHF
Discharge Plan
Departure
Patient Disposition: Admit
Date of Disposition: 08/21/25
Time of Disposition: 15:43
Admit to: Telemetry
Presentation/result/management discussed w/ accepting MD/DO: Hospitalist
Discharge Problem:
Acute CHF, Acute hypoxic respiratory failure
Interventions
Interventions:
*Risk Screen - Suicide Last Done: 08/21/25 12:52
*General Assessment Last Done: 08/21/25 12:52
*Neglect/Abuse Screening Last Done: 08/21/25 12:52
*ED COVID-19 Vaccine History Last Done: 08/21/25 12:52
*ED Influenza Vaccine History Last Done: 08/21/25 12:52
*Nursing Disposition Last Done: 08/21/25 17:20
ED- Cardiac Assessment Last Done: 08/21/25 14:16
ED- Pulmonary Assessment Last Done: 08/21/25 14:16
Discharge Date and Time
Discharge Date/Time: 08/21/25 17:20
[2025-08-21 14:15] LABS: Hematocrit 32.1 % (39.0-52.0); Hemoglobin 9.8 g/dL (13.0-18.0); Mean Corp Hgb Conc. 30.5 g/dL (33.0-37.0); Mean Corpuscular Volume 105.9 fL (80.0-94.0); Red Cell Dist. Width 14.9 % (11.5-14.5)
[2025-08-21 14:16] LABS: INR 3.08; PT 31.7 Sec (11.4-14.6)
[2025-08-21 14:26] LABS: Blood Urea Nitrogen 21 mg/dl (9-20); Calcium 8.6 mg/dl (8.4-10.2); Carbon Dioxide 19 mmol/L (22-30); Chloride 116 mmol/L (98-107); Estimated Creatinine Clearance 51 ml/min; Glucose 81 mg/dl (70-99); Sodium 141 mmol/L (135-145); eGFR 59.10
[2025-08-21 14:29] LABS: Platelet Count 833 10^3/uL (130-400)
[2025-08-21 15:00] LABS: Troponin I < 0.012 ng/ml
[2025-08-21] MEDS: NITRO-BID 1 INCH TOPICAL (15:24)
--- NOTE | 2025-08-21 16:14 | HPS.HSE ---
Family Physician
-
Family Physician: Saira Olsen
Chief Complaint
-
Shortness of breath, dyspnea on exertion
History of Present Illness
69-year-old male with history of coronary artery disease, has had progressively worsening shortness of breath since last Wednesday. Associated orthopnea and dyspnea on exertion.
Denies chest pain or pressure.
Does have a history of congestive heart failure. Not on chronic diuretics at home.
Admits to 16 pound weight gain in the past few weeks. He noticed lower extremity swelling as well.
Medical History
Past Medical History
Past Medical History: Reports Other
Additional Past Medical History:
Chronic heart failure, preserved EF
CAD -HAILE to LAD October 2024, in-stent restenosis May 2025 with new stent placement
Paroxysmal atrial fibrillation
Stroke
Essential hypertension
DM 2
Chronic anemia
Solitary kidney
GERD
Anxiety/depression
Past Surgical History: Reports Cholecystectomy
Additional Past Surgical History:
Renal transplant x 2, 2011, 2014
[place] mechanical aortic valve, 2001
Cholecystectomy
Social History
Tobacco: Non-smoker
Alcohol: Occasional
Drug: None
Personal:
Living: With Family
Family History
Family History: Not pertinent
Allergies / Home Medications
Allergies reflects when Allergies were last updated in [employer].
Home Medications with original date entered in [employer]
Allergy/Medication List:
Allergies
Allergy/AdvReac Type Severity Reaction Status Date / Time
No Known Allergies Allergy Verified 08/21/25 12:54
Home Medications
clopidogrel 75 mg tablet 75 mg PO DAILY Blood Clot Prevention/Tx 04/23/25
diltiazem HCl 360 mg capsule,24 hr,extended release 360 mg PO DAILY Heart Disease/Condition 04/23/25
esomeprazole magnesium 40 mg capsule,delayed release 40 mg PO DAILY GERD 04/23/25
hydralazine 25 mg tablet 25 mg PO BID Blood Pressure 04/23/25
hydroxyurea 500 mg capsule 500 mg PO DAILY CHEMO 04/23/25
mycophenolate sodium 180 mg tablet,delayed release 540 mg PO BID 04/23/25
tacrolimus 1 mg capsule, immediate-release 1 mg PO BID Immunosuppressant Agent 04/23/25
warfarin 2.5 mg tablet 2.5 mg PO MOWEFR@1900 Blood Clot Prevention/Tx 04/23/25
warfarin 5 mg tablet 5 mg PO SUTUTHSA@1900 Blood Clot Prevention/Tx 04/23/25
cholecalciferol (vitamin D3) 50 mcg (2,000 unit) tablet 50 mcg PO DAILY Supplement 06/01/25
magnesium 250 mg tablet 250 mg PO DAILY Supplement 06/01/25
acetaminophen 325 mg tablet (Tylenol) 650 mg PO Q6HPRN PRN mild pain 08/21/25
glimepiride 4 mg tablet 4 mg PO DAILY 08/21/25
losartan 100 mg tablet 100 mg PO DAILY 08/21/25
polyethylene glycol 3350 17 gram oral powder packet (Miralax) 17 g PO DAILYPRN PRN constipation 08/21/25
sertraline 25 mg tablet 25 mg PO DAILY 08/21/25
Review of Systems
-
History Source: Patient and Family
A 12 point ROS was completed and negative except as noted: Yes
Physical Exam
Vital Signs
Vital Signs
Temp Pulse Resp BP Pulse Ox
97.5 F 99 25 178/71 95
08/21/25 12:52 08/21/25 15:45 08/21/25 15:45 08/21/25 15:24 08/21/25 15:45
Physical Exam
General: Well Developed, Well Nourished, No Apparent Distress and Comfortable
HEENT: NormoCephalic, Anicteric and Moist mucous membranes
Respiratory: Rales
Cardiac: S1/S2 and Regular Rhythm
GI: Soft, Non Tender and Non Distended
Genito-urinary: Deferred by me
Musculoskeletal: No Clubbing, No Cyanosis, Edema, Left Lower Extremity and Edema, Right Lower Extremity
Skin: Warm and Dry
Neuro: AO x 3
Hematologic/Lymphatic: No Lymphadenopathy
Psych: Calm
Laboratory Results
-
08/21/25 13:45
Laboratory Results
PT 31.7 Sec (11.4-14.6) H 08/21/25 13:51
INR 3.08 08/21/25 13:51
Total Bilirubin Cancelled 08/21/25 13:51
AST Cancelled 08/21/25 13:51
ALT Cancelled 08/21/25 13:51
Alkaline Phosphatase Cancelled 08/21/25 13:51
Troponin I < 0.012 ng/ml 08/21/25 13:45
Impression/Plan
-
Acute hypoxic respiratory failure -due to acute pulmonary edema due to acute on chronic heart failure exacerbation. Stable on 2 L nasal cannula.
Chest x-ray on admission consistent with pulmonary edema, small bilateral pleural effusions.
Patient denies cough. Clinically doubt pneumonia.
Acute on chronic heart failure with preserved EF -admit to telemetry. Initiate IV Lasix after potassium results.
Consult cardiology.
He is not on diuretics at home.
Check echocardiogram. BNP noted to be 4520.
Essential hypertension -blood pressure uncontrolled, and this may be contributing to heart failure exacerbation. Discussed with patient and to closely monitor pressures at home.
Resume home antihypertensives.
CAD -treated for in-stent restenosis of LAD, May 2025. Continue Plavix.
Troponin in the emergency room was normal. Denies chest pain.
[place] metallic AVR -continue warfarin. INR 3.0.
DM 2 without hyperglycemia -hold glimepiride. Check hemoglobin A1c, use low resistance NovoLog insulin scale.
History of renal transplant x 2 -continue immunosuppression.
Chronic anemia -macrocytic. Hemoglobin 9.8, was 10.6 in May. Leukopenia noted.
I will check anemia labs.
DNR -confirmed with patient and .
Updated at the bedside.
--- NOTE | 2025-08-21 16:38 | CON.CAR ---
Addendum entered and electronically signed by Chip Kinsey MD 08/22/25 10:59:
I saw and examined the patient.
The Marketing Research Analyst's note was reviewed and I agree with the note.
Comment: Briefly, 69-year-old man past medical history of heart failure preserved ejection fraction aortic valve, prior renal transplant who presents in acute heart failure
Patient received IV diuretics yesterday and tells me that his breathing is significantly improved today
Will continue IV diuresis
Wean oxygen as able
Monitor renal function carefully with history of transplant kidney
Will likely need standing up Lasix oral dose at the time of discharge� was not on diuretic prior to admission
Nitropaste had been placed at time of admission with concern for hypertensive urgency/emergency
Will increase home hydralazine dose for better blood pressure control
Rest per Mckayla Shah
Original Note:
Consultation
Consultation Request
Date/Time Consultation Performed: 08/21/25
Requesting Provider: Dr. Walter
Performing Provider: Mckayla Shah PA-C for Dr. Salas
Reason for Consultation: CHF
Medical History
-
Chief Complaint: SOB
History of Present Illness:
Patient is a 69-year-old male with past medical history of [place] Wilfrido mechanical aortic valve 2001, chronic Coumadin therapy managed by [place] [facility], CAD status post MIs resulting in LAD PCI 10/[address] [facility] and 05/2025 at [facility] with medical management of small RCA, solitary kidney status post renal transplant on chronic immunosuppressive therapy, CKD stage III, diabetes, hypertension, paroxysmal atrial fibrillation status post PVI 04/2025 who presents to ""[facility] emergency room due to complaints of shortness of breath. He reports this has been worsening since Wednesday. He states he initially took NyQuil for several days which gave him some improvement, however then his shortness of breath
worsened again. He does report orthopnea, weight gain from 159 pounds to 175 pounds, as well as lower extremity edema. He reports he is careful with salt and reports she does not add much salt to his cooking, however he does drink a large
amount of diet soda. This morning he felt as though he was gurgling and came to the ER for further evaluation. He does not typically require supplemental O2. proBNP 4520. Cardiology consulted for CHF management. To his knowledge he has not had
recurrence of A-fib since ablation. In the past he reports that his CHF was felt to be triggered by A-fib episodes.
PMH:
Chronic HFpEF
Saint Wilfrido mechanical aortic valve 2001
Chronic Coumadin therapy, managed by [place] [facility]
Paroxysmal atrial fibrillation status post PVI 04/2025
CAD
s/p NSTEMI resulting in LAD PCI with residual small RCA disease, medically managed 10/2024 at [facility]
s/p NSTEMI with LAD PCI 05/2025 at [facility]
Solitary kidney status post renal transplant
Chronic immunosuppressed state
CKD stage III
Diabetes
Hypertension
Past Medical History
Past Medical History: Other (in HPI)
Social History
Tobacco: Non-Smoker
Alcohol: Occasional
Personal:
Living: With Family
Employment: Retired
Family History
Family History: CAD and Cancer
Allergies / Home Medications
Allergy/AdvReac Type Severity Reaction Status Date / Time
No Known Allergies Allergy Verified 08/21/25 12:54
�Medication �Instructions �Recorded �Confirmed �Type
clopidogrel 75 mg tablet 75 mg PO DAILY Blood Clot 04/23/25 08/21/25 History
Prevention/Tx
diltiazem HCl 360 mg capsule,24 360 mg PO DAILY Heart 04/23/25 08/21/25 History
hr,extended release Disease/Condition
esomeprazole magnesium 40 mg 40 mg PO DAILY GERD 04/23/25 08/21/25 History
capsule,delayed release
hydralazine 25 mg tablet 25 mg PO BID Blood Pressure 04/23/25 08/21/25 History
hydroxyurea 500 mg capsule 500 mg PO DAILY CHEMO 04/23/25 08/21/25 History
mycophenolate sodium 180 mg 540 mg PO BID 04/23/25 08/21/25 History
tablet,delayed release
tacrolimus 1 mg capsule, 1 mg PO BID Immunosuppressant Agent 04/23/25 08/21/25 History
immediate-release
warfarin 2.5 mg tablet 2.5 mg PO MOWEFR@1900 Blood Clot 04/23/25 08/21/25 History
Prevention/Tx
warfarin 5 mg tablet 5 mg PO SUTUTHSA@1900 Blood Clot 04/23/25 08/21/25 History
Prevention/Tx
cholecalciferol (vitamin D3) 50 50 mcg PO DAILY Supplement 06/01/25 08/21/25 History
mcg (2,000 unit) tablet
magnesium 250 mg tablet 250 mg PO DAILY Supplement 06/01/25 08/21/25 History
acetaminophen 325 mg tablet 650 mg PO Q6HPRN PRN mild pain 08/21/25 08/21/25 History
(Tylenol)
glimepiride 4 mg tablet 4 mg PO DAILY 08/21/25 08/21/25 History
losartan 100 mg tablet 100 mg PO DAILY 08/21/25 08/21/25 History
polyethylene glycol 3350 17 gram 17 g PO DAILYPRN PRN constipation 08/21/25 08/21/25 History
oral powder packet (Miralax)
sertraline 25 mg tablet 25 mg PO DAILY 08/21/25 08/21/25 History
Review of Systems
-
History Source: Patient and Family
All other systems: Negative unless noted
Physical Exam
Vital Signs
Temp Pulse Resp BP Pulse Ox
97.5 F 100 22 183/65 94
08/21/25 12:52 08/21/25 16:15 08/21/25 16:15 08/21/25 16:00 08/21/25 16:15
Lab Results
08/21/25 13:45
Troponin I < 0.012 ng/ml 08/21/25 13:45
Hlc-Q-Tifurfglicg Pept 4520 pg/ml 08/21/25 13:45
Physical Exam
General: No Apparent Distress, Comfortable and Other (on supp O2)
HEENT: Normocephalic, Anicteric and Moist Mucous Membranes
Respiratory: Crackles and Non Labored Respirations
Cardiac: S1/S2 and Regular Rhythm
GI: Soft, Non Tender, Non Distended and Normal Bowel Sounds
Musculoskeletal: No Clubbing, No Cyanosis and Edema (1+ edema of B/L LE)
Skin: Warm and Dry
Neuro: AO x 3
Impression / Plan
-
Primary Oil Well Gun Perforator Operator: Dr. Eng
Assessment:
Presentation with SOB
Acute hypoxic respiratory failure
HTN urgency
Acute on chronic HFpEF
Saint Wilfrido mechanical aortic valve 2001
Chronic Coumadin therapy, managed by [place] [facility]
Paroxysmal atrial fibrillation status post PVI 04/2025
CAD
s/p NSTEMI resulting in LAD PCI with residual small RCA disease, medically managed 10/2024 at [facility]
s/p NSTEMI with LAD PCI 05/2025 at [facility]
Solitary kidney status post renal transplant
Chronic immunosuppressed state
CKD stage III
Diabetes
Hypertension
Plan:
- Patient presents with shortness of breath and is found to have evidence of acute on chronic CHF.
- proBNP 4520 and chest x-ray with evidence of pulmonary edema and small pleural effusions bilaterally
- Currently requiring supplemental O2, wean as able
- CHF education
- Is not on diuretic as outpatient chronically. Will place on 40 mg IV daily. dry weight per patient 159 pounds.
- Creatinine 1.3, follow closely in setting of solitary kidney with prior renal transplant
- Historically EF has been preserved. Will repeat echo and request records for review
- EKG sinus rhythm with first-degree AV block and lateral T wave abnormality, which appears chronic on comparing to prior EKGs. Troponin negative. Last cath from 05/2025 reviewed, at which time patient got LAD PCI
- Chronically on warfarin and Plavix as outpatient. Hemoglobin 9.8. Anemia workup per primary service
- If med list accurate, patient not on statin therapy. Would add if no contraindication with transplant drugs
- Currently on Nitropaste given hypertensive urgency on arrival, possible etiology of acute CHF. He reports at home his blood pressures typically run 140-150 systolic. As outpatient on regimen of diltiazem 360 mg daily, hydralazine 25 mg twice
daily, losartan 100 mg daily
- Discussed with patient and at bedside. Updated primary outside sales account manager by [place] text
Data Reviewed
-
EKG: Tracing Personally Visualized and interpreted
Radiology: Report Reviewed by me
Medical Tests (Nuc Med, Echo etc): Report Reviewed by me
Labs: Labs Reviewed by me
Old Records: Reviewed
[2025-08-21 16:40] LABS: Potassium 5.2 mmol/L (3.5-5.1)
--- NOTE | 2025-08-21 17:04 | EDCM ---
CM reviewed chart and met with pt and bedside in ED. Lives with in 2 story home with basement, first floor half bath, full flight to second floor bedroom and full bath.
Independent in ADLs, personal care and ambulation at baseline. No assistive devices, has stair glide.
Confirms prescription coverage.
No hx VN or SNF
PCP: Saira Olsen
Pharmacy: [facility]
Anticipate discharge home, CM will continue to follow for any discharge planning needs.
[2025-08-21 17:48] LABS: Glucose - Point of Care 79 mg/dl (70-99)
[2025-08-21] MEDS: LASIX 40 MG IV (18:10)
[2025-08-21] MEDS: COUMADIN 5 MG PO (18:11)
[2025-08-21 19:31] LABS: COVID-19 Antigen Negative (Negative)
[2025-08-21] MEDS: APRESOLINE 25 MG PO (19:42)
[2025-08-21] MEDS: MYFORTIC DELAYED REL. 540 MG PO (19:42)
[2025-08-21] MEDS: PROGRAF 1 MG PO (19:42)
[2025-08-21 21:16] LABS: Glucose - Point of Care 126 mg/dl (70-99)
[2025-08-22] VITALS (7 sets, daily range): BP systolic 123–197; BP diastolic 52–96; BMI 25.9
[2025-08-22 07:32] LABS: INR 2.97; PT 31.3 Sec (11.4-14.6)
[2025-08-22 07:37] LABS: ALT (SGPT) 15 U/L (0-50); AST (SGOT) 16 U/L (17-59); Albumin 3.4 g/dl (3.5-5.0); Alkaline Phosphatase 77 U/L (38-126); Calcium 8.8 mg/dl (8.4-10.2); Carbon Dioxide 22 mmol/L (22-30); Chloride 114 mmol/L (98-107); Estimated Creatinine Clearance 55 ml/min; Glucose 82 mg/dl (70-99); Potassium 4.9 mmol/L (3.5-5.1); Sodium 141 mmol/L (135-145); Total Protein 6.1 g/dl (6.3-8.2); eGFR > 60.00
[2025-08-22 07:47] LABS: Blood Urea Nitrogen 19 mg/dl (9-20)
[2025-08-22 09:01] LABS: Glucose - Point of Care 82 mg/dl (70-99)
[2025-08-22] MEDS: CARDIZEM CD 360 MG PO (09:17)
[2025-08-22] MEDS: COZAAR 100 MG PO (09:22)
[2025-08-22] MEDS: ZOLOFT 25 MG PO (09:22)
[2025-08-22] MEDS: PLAVIX 75 MG PO (09:22)
[2025-08-22] MEDS: MAGNESIUM OXIDE 400 MG PO (09:22)
[2025-08-22] MEDS: APRESOLINE 25 MG PO (09:22)
[2025-08-22] MEDS: MYFORTIC DELAYED REL. 540 MG PO ×2 (09:23→20:45)
[2025-08-22] MEDS: PROTONIX 40 MG PO (09:23)
[2025-08-22] MEDS: PROGRAF 1 MG PO ×2 (09:24→20:44)
[2025-08-22] MEDS: HYDREA 500 MG PO (09:24)
[2025-08-22] MEDS: LASIX 40 MG IV (09:25)
[2025-08-22] MEDS: VITAMIN D3 (cholecalciferol) 50 MCG PO (09:27)
--- NOTE | 2025-08-22 10:18 | W.PN.HOSP.TC ---
Today's Communication/Plan
-
Continue IV Lasix
Anemia labs
Echocardiogram
Assessment / Plan
Assessment / Plan
Gen-AAOx3, NAD
HEENT-NC, AT, anicteric, clear oral mm
Neck-supple
CV-reg, no M, +S1/S2
Lungs-clear B/L
Abd-soft, NT, ND
Ext-improving bilateral lower extremity edema
Musculoskeletal-no cyanosis, clubbing
Skin-warm and dry
Neuro-grossly non-focal
Psych-calm, cooperative
Acute hypoxic respiratory failure -due to acute pulmonary edema due to acute on chronic heart failure exacerbation. Oxygenation improved, now on room air.
Chest x-ray on admission consistent with pulmonary edema, small bilateral pleural effusions.
Patient denies cough. Clinically doubt pneumonia.
Acute on chronic heart failure with preserved EF -clinically improving, continue IV Lasix.
Cardiology following.
He is not on diuretics at home.
Check echocardiogram. BNP noted to be 4520.
Essential hypertension -blood pressure uncontrolled, and this may be contributing to heart failure exacerbation. Discussed with patient and to closely monitor pressures at home.
Resume home antihypertensives.
CAD -treated for in-stent restenosis of LAD, May 2025. Continue Plavix.
Troponin in the emergency room was normal. Denies chest pain.
[place]frido metallic AVR -continue warfarin. INR therapeutic.
DM 2 without hyperglycemia -hold glimepiride. Check hemoglobin A1c, use low resistance NovoLog insulin scale. Glucose 82 this morning.
History of renal transplant x 2 -continue immunosuppression.
Chronic anemia -macrocytic. Hemoglobin 9.8, was 10.6 in May. Leukopenia noted. Patient showed me blood work from July 30 in [facility] with a hemoglobin of 12. Not sure if he was hemoconcentrated.
I will check anemia labs.
DNR -confirmed with patient and .
Anticipated Discharge: > 48 hours
Subjective/Interval History
-
Date of Service: August 22, 2025
Patient seen and examined. Feeling much better, denies shortness of breath. Less orthopneic.
Objective Data
-
Labs:
Laboratory Results
08/22/25
06:51
PT 31.3 H
INR 2.97
Sodium 141
Potassium 4.9
Chloride 114 H
Carbon Dioxide 22
BUN 19
Creatinine 1.2
Glucose 82
Calcium 8.8
Total Bilirubin 0.6
AST 16 L
ALT 15
Alkaline Phosphatase 77
Vital Signs:
Vital Signs
Temp Pulse Resp BP Pulse Ox
98.4 F 105 16 156/77 100
08/22/25 07:00 08/22/25 07:00 08/22/25 07:00 08/22/25 07:00 08/22/25 09:21
I&O
08/21/25 08/22/25 08/23/25
06:59 06:59 06:59
Output Total 1480 / 1480
Balance -1480 / -1480
Review of Systems
-
History Source: Patient
All other systems: Reviewed and negative
[2025-08-22 10:33] LABS: Reticulocyte Count 2.7 % (0.4-2.8)
[2025-08-22 10:55] LABS: Iron 88 ug/dl (49-181)
[2025-08-22 11:04] LABS: Total Iron Binding Capacity 291 ug/dl (261-462)
[2025-08-22 12:08] LABS: Glucose - Point of Care 85 mg/dl (70-99)
[2025-08-22 13:45] LABS: Ferritin 293.0 ng/ml (17.9-464.0)
[2025-08-22 14:17] LABS: Folate 6.4 ng/ml (2.76-20); Vitamin B12 352 pg/ml (239-931)
--- NOTE | 2025-08-22 16:33 | CM ---
REviewed chart. Met with pt bedside. IMM provided and placed on chart. Continues of IV lasix.
Plan: Home with no needs vs VN if eligible
[2025-08-22] MEDS: VITAMIN B-12 1000 MCG PO (16:38)
[2025-08-22] MEDS: APRESOLINE 50 MG PO ×2 (16:40→20:44)
[2025-08-22 16:44] LABS: Glucose - Point of Care 105 mg/dl (70-99)
[2025-08-22 17:50] LABS: C-Reactive Protein 36.10 mg/L (0.0-10.00)
[2025-08-22] MEDS: COUMADIN 2.5 MG PO (18:02)
[2025-08-22 21:08] LABS: Glucose - Point of Care 153 mg/dl (70-99)
[2025-08-23 03:07] VITALS: BP 140/68
[2025-08-23 06:00] VITALS: BMI 25.3
[2025-08-23 07:07] LABS: Glucose - Point of Care 107 mg/dl (70-99)
[2025-08-23 07:25] VITALS: BP 141/63
[2025-08-23 07:26] LABS: Hematocrit 30.9 % (39.0-52.0); Hemoglobin 9.6 g/dL (13.0-18.0); Mean Corp Hgb Conc. 31.1 g/dL (33.0-37.0); Mean Corpuscular Volume 106.2 fL (80.0-94.0); Platelet Count 774 10^3/uL (130-400); Red Cell Dist. Width 14.5 % (11.5-14.5)
[2025-08-23 07:42] LABS: ALT (SGPT) 12 U/L (0-50); AST (SGOT) 14 U/L (17-59); Albumin 3.4 g/dl (3.5-5.0); Alkaline Phosphatase 75 U/L (38-126); Blood Urea Nitrogen 24 mg/dl (9-20); Calcium 8.8 mg/dl (8.4-10.2); Carbon Dioxide 26 mmol/L (22-30); Chloride 112 mmol/L (98-107); Estimated Creatinine Clearance 51 ml/min; Glucose 109 mg/dl (70-99); Potassium 4.6 mmol/L (3.5-5.1); Sodium 141 mmol/L (135-145); Total Protein 5.8 g/dl (6.3-8.2); eGFR 59.10
[2025-08-23 07:45] LABS: INR 2.76; PT 29.6 Sec (11.4-14.6)
[2025-08-23 08:05] LABS: Absolute Neutrophils -Man Diff 2.8 10^3/uL (1.4-6.5); Platelets Checked Yes
[2025-08-23 08:06] LABS: Anisocytosis Slight; Normal RBC Morphology No; Total Cells Counted 100
[2025-08-23] MEDS: MYFORTIC DELAYED REL. 540 MG PO (08:27)
[2025-08-23] MEDS: PROTONIX 40 MG PO (08:27)
[2025-08-23] MEDS: HYDREA 500 MG PO (08:27)
[2025-08-23] MEDS: ZOLOFT 25 MG PO (08:28)
[2025-08-23] MEDS: PLAVIX 75 MG PO (08:28)
[2025-08-23] MEDS: VITAMIN D3 (cholecalciferol) 50 MCG PO (08:28)
[2025-08-23] MEDS: PROGRAF 1 MG PO (08:28)
[2025-08-23] MEDS: CARDIZEM CD 360 MG PO (08:29)
[2025-08-23] MEDS: MAGNESIUM OXIDE 400 MG PO (08:29)
[2025-08-23] MEDS: LASIX 40 MG IV (08:29)
[2025-08-23] MEDS: VITAMIN B-12 1000 MCG PO (08:29)
[2025-08-23] MEDS: APRESOLINE 50 MG PO (08:30)
[2025-08-23] MEDS: COZAAR 100 MG PO (08:30)
[2025-08-23 08:49] LABS: Glycohemoglobin (HgbA1c) 5.3 % (4.0-5.6)
--- NOTE | 2025-08-23 11:12 | W.PN.HOSP.TC ---
Addendum entered and electronically signed by Alan Walter DO 08/24/25 11:57:
Hypertensive emergency -present on admission. Resolved.
Original Note:
Today's Communication/Plan
-
Discharge
Assessment / Plan
Assessment / Plan
Gen-AAOx3, NAD
HEENT-NC, AT, anicteric, clear oral mm
Neck-supple
CV-reg, no M, +S1/S2
Lungs-clear B/L
Abd-soft, NT, ND
Ext-no edema
Musculoskeletal-no cyanosis, clubbing
Skin-warm and dry
Neuro-grossly non-focal
Psych-calm, cooperative
Acute hypoxic respiratory failure -due to acute pulmonary edema due to acute on chronic heart failure exacerbation. Oxygenation improved, now on room air.
Chest x-ray on admission consistent with pulmonary edema, small bilateral pleural effusions.
Patient denies cough. Clinically doubt pneumonia.
Acute on chronic heart failure with preserved EF -clinically improving. Cardiology okay with transition to furosemide 20 mg p.o. daily, spironolactone 12.5 mg daily. Can discharge today, follow-up with Dr. Richie Eng.
Cardiology following.
He is not on diuretics at home.
Echocardiogram noted, LVEF 50%, moderate LVH, RV size and systolic function normal. Mechanical aortic valve noted. Redundant chordal structures and prominent echodensities on the atrial side of the anterior leaflet. Spoke with cardiology,
clinically doubt endocarditis. Blood cultures have been ordered, if they do barrel turner positive then he will need a LISHA. However, no need to keep in the hospital. Cardiology okay with discharge today.
Cardiology recommends workup for ATTR cardiomyopathy.
Essential hypertension -stable.
CAD -treated for in-stent restenosis of LAD, May 2025. Continue Plavix.
Troponin in the emergency room was normal. Denies chest pain.
[place] Wilfrido metallic AVR -continue warfarin. INR therapeutic.
DM 2 without hyperglycemia -hold glimepiride. Hemoglobin A1c 5.3%. Moving forward, I do not believe he needs to resume glimepiride on discharge. Discussed in detail with patient to watch his diet and exercise. Follow-up with his primary care
doctor and speech pathology assistant.
History of renal transplant x 2 -continue immunosuppression.
Chronic anemia -macrocytic. Hemoglobin 9.8, was 10.6 in May. Leukopenia noted. Patient showed me blood work from July 30 in [facility] with a hemoglobin of 12. Not sure if he was hemoconcentrated.
Anemia labs reviewed, no evidence of iron deficiency. Folic acid level normal, vitamin B12 level 352, low end of normal. Started oral vitamin B12.
DNR -confirmed with patient and .
Dispo -stable for discharge home today. Outpatient follow-up.
BMP next week as an outpatient.
35 minutes spent in discharge process.
Anticipated Discharge: Today
Subjective/Interval History
-
Date of Service: August 23, 2025
Patient seen and examined. No complaints.
Objective Data
-
Labs:
Laboratory Results
08/23/25
06:57
WBC 4.3 L
Hgb 9.6 L
Hct 30.9 L
Plt Count 774 H
PT 29.6 H
INR 2.76
Sodium 141
Potassium 4.6
Chloride 112 H
Carbon Dioxide 26
BUN 24 H
Creatinine 1.3
Glucose 109 H
Calcium 8.8
Total Bilirubin 0.5
AST 14 L
ALT 12
Alkaline Phosphatase 75
Vital Signs:
Vital Signs
Temp Pulse Resp BP Pulse Ox
98.7 F 95 16 159/60 97
08/23/25 07:25 08/23/25 08:29 08/23/25 07:25 08/23/25 08:29 08/23/25 07:45
I&O
08/22/25 08/23/2525
06:59 06:59 06:59
Intake Total 420 / 420
Output Total 1480 / 1480 1875 / 187
Balance -1480 / -1480 -1455 / -1455
Review of Systems
-
History Source: Patient
All other systems: Reviewed and negative
--- NOTE | 2025-08-23 11:23 | W.DS.TRANS ---
DC Summary - Seismograph Operator
-
Discharge Instructions:
Discharge Diagnosis/Procedures Acute heart failure exacerbation
Diet Diabetic, Carb Controlled,2 Gram Sodium
Activity As tolerated
Driving Restrictions As prior to admission
Bathing Restrictions None
Blood Work BMP next week
Instructions: *PCP/Other Email Campaign Specialist Heart Failure Instructions
Stand-Alone Forms:
Changes to Home Medications: Yes
Discharge Medications:
DC Medications w/original date entered in [employer]
clopidogrel 75 mg tablet 75 mg PO DAILY Blood Clot Prevention/Tx 04/23/25
diltiazem HCl 360 mg capsule,24 hr,extended release 360 mg PO DAILY Heart Disease/Condition 04/23/25
esomeprazole magnesium 40 mg capsule,delayed release 40 mg PO DAILY GERD 04/23/25
hydroxyurea 500 mg capsule 500 mg PO DAILY CHEMO 04/23/25
mycophenolate sodium 180 mg tablet,delayed release 540 mg PO BID Transplant 04/23/25
tacrolimus 1 mg capsule, immediate-release 1 mg PO BID Immunosuppressant Agent 04/23/25
warfarin 2.5 mg tablet 2.5 mg PO MOWEFR@1900 Blood Clot Prevention/Tx 04/23/25
warfarin 5 mg tablet 5 mg PO SUTUTHSA@1900 Blood Clot Prevention/Tx 04/23/25
cholecalciferol (vitamin D3) 50 mcg (2,000 unit) tablet 50 mcg PO DAILY Supplement 06/01/25
magnesium 250 mg tablet 250 mg PO DAILY Supplement 06/01/25
acetaminophen 325 mg tablet (Tylenol) 650 mg PO Q6HPRN PRN mild pain 08/21/25
losartan 100 mg tablet 100 mg PO DAILY Blood Pressure 08/21/25
polyethylene glycol 3350 17 gram oral powder packet (Miralax) 17 g PO DAILYPRN PRN constipation 08/21/25
sertraline 25 mg tablet 25 mg PO DAILY Mental Health/Anxiety 08/21/25
BMP #1 ea 08/23/25
cyanocobalamin (vitamin B-12) 500 mcg tablet (Vitamin B-12) 1,000 mcg (2 x 500 mcg) PO DAILY #30 tabs 10/02/25
furosemide 20 mg tablet (Lasix) 20 mg PO DAILY #30 tabs 08/23/25
hydralazine 50 mg tablet 50 mg PO TID #90 tabs 08/23/25
spironolactone 25 mg tablet 12.5 mg (1/2 x 25 mg) PO DAILY #30 tabs 08/23/25
Home Medication Changes
Hydralazine dose increased to 50 mg 3 times a day
Stop glimepiride
Pending Results: No
[2025-08-23 11:37] VITALS: BP 125/58
[2025-08-23 11:56] LABS: Glucose - Point of Care 125 mg/dl (70-99)
--- NOTE | 2025-08-23 12:21 | W.PN.CARDCBS ---
Addendum entered and electronically signed by Kole Salgado MD 08/23/25 12:53:
69-year-old man admitted with acute HFpEF.
PMH: [place] Wilfrido mechanical aortic valve 2021, LAD PCI for anterior and STEMI at [facility] October 2024 and repeat LAD PCI at [facility] May 2024, History of renal transplants, CKD 3 AA, diabetes, hypertension,
hyperlipidemia, PAF with PVI April 2025
Current meds: Clopidogrel 75 mg a day, diltiazem CD3 160 mg a day, pantoprazole 40 mg a day, hydroxyurea 500 mg daily, losartan 100 mg a day, magnesium 400 mg a day, mycophenolate, sertraline 25 mg a day, tacrolimus 1 mg twice daily, warfarin,
furosemide 40 mg IV daily, hydralazine 50 mg 3 times daily, vitamin B 01966/60, 123/52, weight is 75.5 kg, down 1.8 kg, -1.5 kg, intake and output
Chest x-ray vascular congestion, effusions left greater than right
ECG: Sinus rhythm, possible left atrial enlargement, cannot exclude anterior MO
He offers no complaints. He has been on Jardiance in the past which is not affordable.
159/60, pulse 95, respiratory rate 16, afebrile, sats 97% weight is 75.5 kg, down 1.8 kg since yesterday, no distress lungs are clear, regular rate and rhythm, abdomen benign no edema neck veins okay
Hemoglobin 9.6, sed rate is 64, BUN and creatinine are 24 and 1.3, potassium is 4.6, INR is 2.76, proBNP was 4520
Echo 08/22/2025: EF 50%, moderate LVH, dilated left atrium, peak/mean gradients across aortic valve 31 and 16 mmHg, echodensities on atrial side of left atrium, mild TR, pulmonary artery systolic pressure is 51 mmHg
Impression:
Plan:
He appears stable from a cardiac standpoint.
His echo suggested a possible density in the atrium. I think this is most likely artifact. We could perform a transesophageal echo, but it would be desirable to avoid. At this point I would draw blood cultures and unless they are positive not
pursue a transesophageal echo. An echo could be repeated as an outpatient. Discussed with Dr. Eng and Dr. Walter. Will draw screening studies for amyloid.
Will transition to oral furosemide 20 mg a day and add spironolactone 12.5 mg daily.
He cannot afford Jardiance which would otherwise be indicated.
Should be okay for discharge later today or tomorrow.
Original Note:
Today's Communication / Plan
-
transitioned to oral diuretic
amyloid labs
discharge with f/u with Dr Eng-pt has arranged
Impression / Plan
-
Primary Retouching Operator: Dr. Eng
Assessment:
Presentation with SOB
Acute hypoxic respiratory failure
HTN urgency
Acute on chronic HFpEF
Saint Wilfrido mechanical aortic valve 2001
Chronic Coumadin therapy, managed by [place] [facility] [place]
Paroxysmal atrial fibrillation status post PVI 04/2025
CAD
s/p NSTEMI resulting in LAD PCI with residual small RCA disease, medically managed 10/[address] [facility]
s/p NSTEMI with LAD PCI 05/2025 at [facility]
Solitary kidney status post renal transplant
Chronic immunosuppressed state
CKD stage III
Diabetes
Hypertension
Echo 08/22/2025: Normal LV size, EF 50%, moderate LVH, normal RV size and function, mechanical aortic valve peak/mean 31/16 mmHg, mild to moderate MR, mild TR, estimated PAP 51 mmHg
Plan:
- Patient presented with SOB and is found to have acute on chronic CHF.
- proBNP 4520 and chest x-ray with evidence of pulmonary edema and small pleural effusions bilaterally
-Diuresed 9 pounds to current weight of 166 pounds on Lasix 40 mg IV daily. Per patient dry weight is 159 pounds.
-Shortness of breath resolved
- weaned off O2
-Was not on outpatient diuretic. Will start on Lasix 40 mg daily
- Creatinine stable 1.3, follow closely in setting of solitary kidney with prior renal transplant
-check BMP 1 wk after dicharge
- Echo 08/22 with preserved EF
-Check Amyloid labs including LAKESHA urine, serum free light chain, protein electrophoresis reflex�ordered
-HF education
- EKG sinus rhythm with first-degree AV block and lateral T wave abnormality, which appears chronic on comparing to prior EKGs. Troponin negative. Last cath from 05/2025 reviewed, at which time patient got LAD PCI
- Chronically on warfarin and Plavix as outpatient. Hemoglobin 9.6. Anemia workup per primary service
- If med list accurate, patient not on statin therapy. Would add if no contraindication with transplant drugs
- Blood pressure 125/58. has ranged up to 180s to 190s systolically and had been on Nitropaste, now off. Continue outpatient antihypertensive regimen of diltiazem 360 mg daily, losartan 100 mg daily, hydralazine, which was uptitrated this
admission to 50 mg 3 times daily
-Follow-up with Dr. Eng in outpatient setting. He has an appointment scheduled later this month
- Discussed with nursing and primary team
Progress Note - Retouching Operator
Subjective
Date of Service: August 23, 2025
feels well, SOB resolved
Objective
Labs:
08/23/25 06:57
08/23/25 06:57
Labs
Hgb 9.6 g/dL (13.0-18.0) L 08/23/25 06:57
Hct 30.9 % (39.0-52.0) L 08/23/25 06:57
Plt Count 774 10^3/uL (130-400) H 08/23/25 06:57
PT 29.6 Sec (11.4-14.6) H 08/23/25 06:57
INR 2.76 08/23/25 06:57
Sodium 141 mmol/L (135-145) 08/23/25 06:57
Potassium 4.6 mmol/L (3.5-5.1) 08/23/25 06:57
BUN 24 mg/dl (9-20) H 08/23/25 06:57
Creatinine 1.3 mg/dL (0.7-1.3) 08/23/25 06:57
Glucose 109 mg/dl (70-99) H 08/23/25 06:57
Troponins
08/21/25
13:45
Troponin I < 0.012
Vital Signs and I&O:
Vital Signs
Temp Pulse Resp BP Pulse Ox
98 F 88 16 125/58 96
08/23/25 11:37 08/23/25 11:37 08/23/25 11:37 08/23/25 11:37 08/23/25 11:37
Vital Signs
Temp Pulse Resp BP Pulse Ox
98 F 88 16 125/58 96
08/23/25 11:37 08/23/25 11:37 08/23/25 11:37 08/23/25 11:37 08/23/25 11:37
Intake & Output
08/21/25 08/22/25 08/23/25 08/24/25
06:59 06:59 06:59 06:59
Intake Total 420 / 420
Output Total 1480 / 1480 1875 / 1875
Balance -1480 / -1480 -1455 / -1455
Physical Exam
Physical Exam
GEN: No distress, awake, Ox3
HEENT: supple, anicteric, mmm
LUNGS: CTA, no wheezes/rales
CV: Reg, S1/S2, 2/6 syst LSB
ABD: soft, BS+, NT/ND
EXT: No edema
NEURO: Gross non-focal
SKIN: No rash
--- NOTE | 2025-08-23 15:22 | PN.CDI ---
CDI
- -
CDI:
Physician Documentation Request
Admit Date: 08/21/25 16:20
Dear Doctor Jose Angel,
Patient admitted for management of heart failure and respiratory failure.
H&P include a diagnosis of uncontrolled essential hypertension
Cardiology consult states 'Nitropaste had been placed at time of admission with concern for hypertensive urgency/emergency. Will increase home hydralazine dose for better blood pressure control'
Please clarify which is the most accurate diagnosis reflecting the acuity of the documented presenting hypertension:
Hypertensive Urgency - B/P is severely elevated (systolic > or = to 180 or diastolic > or = to 110) but there is no associated organ damage. Symptoms may include: headache, shortness of breath, nosebleeds, severe anxiety. Treatment usually consists
of addition to or adjusting of oral medications and does not generally necessitate hospitalization.
Hypertensive Emergency - B/P is severely elevated (systolic > or = to 180 or diastolic > or = to 110) but can occur at lower levels especially in patients who did not previously have high B/P. There is usually associated organ damage. Symptoms may
include: memory loss, LOC, CVA, ID, angina, renal failure, pulmonary edema. Generally requires more aggressive treatment and a hospitalization.
Essential primary hypertension
Other (please specify)
Use of terms such as suspected, likely, concern for, or probable (associated with a specific diagnosis that is being evaluated, monitored, or treated as if it exists) are acceptable and can be coded in the inpatient setting, when documented at the
time of discharge.
Thank you,
Victoria Cocuh RN, BSN
CDI Specialist
tiger text
Please use your independent medical judgment in providing your response.
[2025-08-26 11:35] LABS: 24 Hour Urine Total Volume Random mL; Urine Collection Length Random hr
[2025-08-27 14:12] LABS: Albumin 3.49 g/dL (3.75-5.01); Free Kappa Light Chains,Quant 29.86 mg/L (3.30-19.40); Free Lambda Light Chains,Quant 22.45 mg/L (5.71-26.30); Immunofixation Electrophoresis IFE Done; Kappa/Lambda Fr Light Ratio 1.33 (0.26-1.65); Total Protein-Electrophoresis 5.9 g/dL (6.3-8.2)
== END 2025-08-23 13:46 | disposition home or self-care (01) | DRG 291 ==
LOC: 4 EAST ACU 16:20
PROVIDERS: Physician Assistant; ADMITTING PHYSICIAN Hospitalist; EMERGENCY PHYSICIAN Emergency Medicine; FAMILY PHYSICIAN Family Medicine; OTHER PHYSICIAN Internal Medicine Cardiovascular Disease
DX: I13.0 Hypertensive heart and chronic kidney disease with heart failure and stage 1 through stage 4 chronic kidney disease, or unspecified chronic kidney disease (principal); I50.33 Acute on chronic diastolic (congestive) heart failure; J96.01 Acute respiratory failure with hypoxia; D84.821 Immunodeficiency due to drugs; Z94.0 Kidney transplant status; I16.0 Hypertensive urgency; D63.1 Anemia in chronic kidney disease; I25.10 Atherosclerotic heart disease of native coronary artery without angina pectoris; E11.22 Type 2 diabetes mellitus with diabetic chronic kidney disease; N18.30 Chronic kidney disease, stage 3 unspecified; Z66 Do not resuscitate; K21.9 Gastro-esophageal reflux disease without esophagitis; I48.0 Paroxysmal atrial fibrillation; Z11.52 Encounter for screening for COVID-19; Z79.899 Other long term (current) drug therapy; Z79.01 Long term (current) use of anticoagulants; Z79.60 Long term (current) use of unspecified immunomodulators and immunosuppressants; Z79.02 Long term (current) use of antithrombotics/antiplatelets
CPT/HCPCS: 71046; 80048; 80053; 82607; 82728; 82746; 82784; 82962; 83036; 83520; 83521; 83540; 83550; 83880; 84132; 84155; 84156; 84165; 84484; 85025; 85027; 85045; 85610; 85652; 86140; 86334; 86335; 87040; 87811; 93005; 93306; 96374; 99285

== ENCOUNTER 2025-08-27 22:21 | Inpatient (IN) | payer MEDICARE, SELFPAY ==
[2025-08-27 18:37] VITALS: BP 103/43
[2025-08-27 19:18] LABS: ALT (SGPT) 12 U/L (0-50); AST (SGOT) 19 U/L (17-59); Albumin 3.8 g/dl (3.5-5.0); Alkaline Phosphatase 66 U/L (38-126); Blood Urea Nitrogen 42 mg/dl (9-20); Calcium 8.5 mg/dl (8.4-10.2); Carbon Dioxide 19 mmol/L (22-30); Chloride 108 mmol/L (98-107); Glucose < 30 mg/dl (70-99); Potassium 4.3 mmol/L (3.5-5.1); Sodium 138 mmol/L (135-145); Total Protein 6.3 g/dl (6.3-8.2); eGFR 24.59
[2025-08-27 19:19] LABS: Hematocrit 31.4 % (39.0-52.0); Hemoglobin 9.7 g/dL (13.0-18.0); Mean Corp Hgb Conc. 30.9 g/dL (33.0-37.0); Mean Corpuscular Volume 103.6 fL (80.0-94.0); Nucleated Red Blood Cells % 0.2 % (-); Platelet Count 1016 10^3/uL (130-400); Red Cell Dist. Width 14.9 % (11.5-14.5)
[2025-08-27 19:26] LABS: Glucose - Point of Care 44 mg/dl (70-99)
[2025-08-27 19:30] LABS: Troponin I 0.041 ng/ml
[2025-08-27 19:44] LABS: Glucose - Point of Care 47 mg/dl (70-99)
[2025-08-27 20:02] VITALS: BP 129/43
[2025-08-27 20:02] LABS: Glucose - Point of Care 47 mg/dl (70-99)
[2025-08-27] MEDS: DEXTROSE 50% SYRINGE 12.5 GRAMS IV (20:05)
[2025-08-27 20:22] LABS: Glucose - Point of Care 100 mg/dl (70-99)
[2025-08-27 20:41] LABS: INR 3.97; PT 38.4 Sec (11.4-14.6)
--- NOTE | 2025-08-27 21:13 | ED.GENMED ---
History of Present Illness
General
Chief Complaint: Weakness
Source: patient and spouse
Time Seen by Provider: 08/27/25 20:05
History of Present Illness
History of Present Illness:
Note:
CHIEF COMPLAINT(S)
Low blood sugar and fluid imbalance.
HISTORY OF PRESENT ILLNESS
The patient is a 69-year-old male with a history of diabetes and renal transplant, presenting with low blood sugar. The patient was previously hospitalized and discharged on , during which they were prescribed Lasix (furosemide) and
spironolactone. Since starting these medications, the patient reports increased urination but not at an expected level given the Lasix dosage. The patient states that their diabetes medication, glimepiride, was stopped, and they were not advised to
take any replacement medications. Patient states he has not felt well since Wednesday.
The patient also reports experiencing vision disturbances described as feeling like his vision was fading since Wednesday. They felt significantly weak upon waking today. The patient was found to have elevated serum creatinine (2.7 mg/dL), previously
1.3 mg/dL, suggesting possible acute kidney injury, likely due to over-diuresis from Lasix. The patient's spouse states that he has a history of two renal transplants, the last performed at [facility], following a problematic first transplant at
[facility].
The patient is feeling better now that blood sugar has normalized. However, concerns remain regarding kidney function and maintaining fluid balance.
Additional historian
Patient's spouse, see above
PAST MEDICAL AND SURGICAL HISTORY
- Diabetes mellitus
- Two renal transplants,
- First transplant performed at [facility]
CHRONIC MEDICAL CONDITIONS SIGNIFICANTLY AFFECTING CARE
- Diabetes mellitus, currently unmanaged in terms of medication
- History of renal transplantation
PHYSICAL EXAM
General: Alert, oriented, and cooperative.
Cardiovascular: Regular, with ectopy. Traced bilateral edema noted
Respiratory: Lungs clear to auscultation.
Gastrointestinal: Abdomen soft, non-distended.
Neurological: Awake and alert, no focal deficits
PROBLEM LIST
Acute:
1. Hypoglycemia secondary to medication mismanagement.
2. Acute kidney injury, likely due to diuretic overuse.
Chronic:
1. Diabetes mellitus
2. History of renal transplantation
PLAN
1. Hold Lasix to prevent further renal insult and monitor renal function closely.
2. Administer gentle fluid rehydration (250 mL) to address potential dehydration and hypotension.
3. Re-evaluate renal function with a close watch overnight to prevent worsening of the creatinine levels.
4. Review and adjust diabetes management plan to prevent recurrent hypoglycemia.
5. Consider referral to nephrology for further management given history of renal transplant and current renal issues.
6. Ensure patient has access to adequate nutritional support, such as crackers, as mentioned for low blood sugar management.
DIFFERENTIAL DIAGNOSIS
The differential diagnosis includes, in no particular order and is not limited to:
1. Diabetes medication reduction leading to hypoglycemia.
2. Diuretic use (Lasix) leading to acute kidney injury.
3. Fluid imbalance from diuretic overuse.
4. Medication error or non-compliance.
5. Renal transplant rejection.
6. Gastrointestinal bleeding.
7. Adrenal insufficiency.
8. Renal artery stenosis.
9. Electrolyte imbalance.
10. Volume depletion due to increased urination.
EKG
My independent EKG interpretation is:
- Time of EKG: Not specified
- Rhythm: Sinus rhythm with premature atrial complexes in a bigeminy pattern
- Heart Rate: 87 bpm
- Notable Intervals: First-degree AV block
- [place]: Normal
- Abnormalities: Poor anterior R-wave progression, nonspecific ST-T wave changes
Disposition:
SUMMARY OF ENCOUNTER
The patient, a 69-year-old male with a history of diabetes and renal transplant, presented to the emergency department due to hypoglycemia and signs of acute kidney injury. Recently discharged, the patient was started on 20 mg of furosemide daily.
Current labs reveal a significant increase in creatinine from 1.3 mg/dL to 2.7 mg/dL, suggesting potential acute kidney injury likely secondary to diuretic use. Bicarbonate is 19, and platelet count indicates thrombocytosis at 1016. Hemoglobin is
stable at 9.7. Initial blood glucose was less than 30, on repeat it normalized to 100. The patient denied accidental intake of glimepiride; however, the use of a pillbox raises concerns for possible medication errors. Given the possibility of fluid
imbalance due to diuretics and the risk of hypoglycemia, the patient was managed with gentle fluid resuscitation (250 mL), holding Lasix, and was considered for admission for close monitoring of kidney function and blood glucose levels given his
complex medical history.
DISPOSITION
Admit for close management of kidney function and blood glucose.
ASSESSMENT
Acute kidney injury likely secondary to initiating diuretic therapy with furosemide. Hypoglycemia of unclear etiology, though question medication error due to the patients use of a pillbox, although patient denies
EMERGENCY TREATMENTS ADMINISTERED
Gentle fluid resuscitation with 250 mL due to the history of heart failure.
INDEPENDENT REVIEW OF LABS AND INTERPRETATION OF TESTS
My independent review of serum creatinine shows an increase to 2.7 mg/dL, indicating acute kidney injury.
My independent review of CBC reveals thrombocytosis with a platelet count of 1016. Hemoglobin is stable at 9.7.
My independent review of blood glucose recorded a reading of less than 30 initially, rising to 100 on repeat testing.
My independent review of bicarbonate indicates a level of 19, which could suggest metabolic acidosis.
FOLLOW-UP INSTRUCTIONS
The patient will need close monitoring in the hospital for renal function and blood glucose. Follow-up instructions with a ticker wirer and/or food service manager as needed to adjust medications and manage ongoing care.
MEDICATION RECONCILIATION
Hold furosemide and ASHLI inhibitor due to concern for further renal impairment.
MEDICAL DECISION MAKING
1. Number and Complexity of Problems Addressed:
Chronic conditions affecting care include diabetes mellitus and history of renal transplantation. Differential diagnoses include:
- Diabetes medication reduction leading to hypoglycemia
- Diuretic use leading to acute kidney injury
- Fluid imbalance from diuretic overuse
- Medication error or non-compliance
- Renal transplant rejection
2. Data:
- Category 1:
- Tests and documents: Reviewed lab results including creatinine, CBC, and blood glucose levels.
- Reviewed old records and discharge summary noting recent medication changes.
- Category 2:
- Input from an independent historian was considered as the patient uses a pillbox, raising concerns for potential medication errors.
3. Risk:
The patient was admitted for monitoring and management, taking into account the complexity of their renal transplantation, acute kidney injury, and hypoglycemia, all of which present [id number] risk for further complications.
DIAGNOSIS
- Acute Kidney Injury, N17.9
- Hypoglycemia, E16.2
- Thrombocytosis, D75.82
Phy Exam
Physical Exam
Physical Exam:
.
Course
Orders/Labs/Results
Orders:
Orders
08/27/25 18:37
ECG [Electrocardiogram (*1)] Urgent
Reason for Study: Fatigue / Weakness
EKG- Treatment ONCE
08/27/25 18:43
Complete Blood Count/With Diff Urgent
Comprehensive Metabolic Panel Urgent
NT-proBNP Urgent
Troponin I Urgent
08/27/25 20:02
Dextrose 50%-Water [Dextrose 50% Syringe] 12.5 grams IV NOW STA
08/27/25 20:24
Prothrombin Time Urgent
08/27/25 21:12
0.9% Sodium Chloride 250 ml [Nss] 250 ml IV BOLUS
Abnormal Lab Results
08/27/25 08/27/25 08/27/25
18:43 19:24 19:43
RBC 3.03 L 10^6/uL
(4.70-6.10)
Hgb 9.7 L g/dL
(13.0-18.0)
Hct 31.4 L %
(39.0-52.0)
MCV 103.6 H fL
(80.0-94.0)
MCH 32.0 H pg
(27.0-31.0)
MCHC 30.9 L g/dL
(33.0-37.0)
RDW 14.9 H %
(11.5-14.5)
Plt Count 1016 H D 10^3/uL
(130-400)
Abs Immat Gran (auto) 0.2 H 10^3/uL
(0-0.05)
Absolute Neuts (auto) 6.7 H 10^3/uL
(1.4-6.5)
Absolute Lymphs (auto) 0.7 L 10^3/uL
(1.2-3.4)
Absolute Monos (auto) 1.5 H 10^3/uL
(0.1-0.6)
Immature Gran % 1.7 H %
(0-0.5)
Lymphocytes % 8.1 L %
(20.5-51.1)
Monocytes % 16.2 H %
(1.7-9.3)
PT
Chloride 108 H mmol/L
(98-107)
Carbon Dioxide 19 L mmol/L
(22-30)
BUN 42 H mg/dl
(9-20)
Creatinine 2.7 H mg/dL
(0.7-1.3)
Glucose < 30 L* mg/dl
(70-99)
Troponin I 0.041 H* ng/ml
POC Glucose 44 L* mg/dl 47 L* mg/dl
(70-99) (70-99)
08/27/25 08/27/25 08/27/25
20:00 20:21 20:24
RBC
Hgb
Hct
MCV
MCH
MCHC
RDW
Plt Count
Abs Immat Gran (auto)
Absolute Neuts (auto)
Absolute Lymphs (auto)
Absolute Monos (auto)
Immature Gran %
Lymphocytes %
Monocytes %
PT 38.4 H Sec
(11.4-14.6)
Chloride
Carbon Dioxide
BUN
Creatinine
Glucose
Troponin I
POC Glucose 47 L* mg/dl 100 H mg/dl
(70-99) (70-99)
08/27/25 18:43
08/27/25 18:43
Vital Signs
Initial and Last Documented VS:
Initial Vital Signs
Temp Pulse Resp Pulse Ox
97.4 F 83 18 96
08/27/25 18:32 08/27/25 18:32 08/27/25 18:32 08/27/25 18:32
Last Documented Vital Signs
Temp Pulse Resp BP Pulse Ox
97.4 F 83 22 129/43 98
08/27/25 18:32 08/27/25 20:15 08/27/25 20:15 08/27/25 20:02 08/27/25 21:14
*Pulse Oximetry
SaO2: 98
Oxygen Mode of Delivery: Room air
Patient hypoxic: no
*Critical Care Note
Total Time (30-74mins, 75-104mins- exclusive of procedures): Not Applicable
ED Attending Note
-
Portions of this chart may have been created with voice recognition software.� Occasional wrong word or��sound alike� substitutions may have occurred due to the inherent limitations of voice recognition software.
Discharge Plan
Departure
Patient Disposition: Admit
Date of Disposition: 08/27/25
Time of Disposition: 21:13
Admit to: Med/Surg
Presentation/result/management discussed w/ accepting MD/DO: Hospitalist
Discharge Problem:
Acute kidney injury, Hypoglycemia
Prescriptions:
No Action
hydroxyurea 500 mg Capsule
500 mg PO DAILY
diltiazem HCl 360 mg Capsule,Extended Release 24hr
360 mg PO DAILY
clopidogrel 75 mg Tablet
75 mg PO DAILY
esomeprazole magnesium 40 mg Capsule,Delayed Release(Dr/Ec)
40 mg PO DAILY
tacrolimus 1 mg Capsule
1 mg PO BID
mycophenolate sodium 180 mg Tablet,Delayed Release (Dr/Ec)
540 mg PO BID
warfarin 2.5 mg Tablet
2.5 mg PO MOWEFR@1900
warfarin 5 mg Tablet
5 mg PO SUTUTHSA@1900
magnesium 250 mg Tablet
250 mg PO DAILY
cholecalciferol (vitamin D3) 50 mcg (2,000 unit) Tablet
50 mcg PO DAILY
acetaminophen [Tylenol] 325 mg Tablet
650 mg PO Q6HPRN PRN (Reason: mild pain)
polyethylene glycol 3350 [Miralax] 17 gram Powder In Packet
17 g PO DAILYPRN PRN (Reason: constipation)
sertraline 25 mg Tablet
25 mg PO DAILY
losartan 100 mg Tablet
100 mg PO DAILY
cyanocobalamin (vitamin B-12) [Vitamin B-12] 500 mcg Tablet
1,000 mcg PO DAILY Qty: 30 0RF
furosemide [Lasix] 20 mg tablet
20 mg PO DAILY Qty: 30 0RF
hydralazine 50 mg tablet
50 mg PO TID Qty: 90 0RF
spironolactone 25 mg tablet
12.5 mg PO DAILY Qty: 30 0RF
rosuvastatin [Crestor] 10 mg Tablet
10 mg PO DAILY
Referrals:
NONE,* [Family Provider, Internal Medicine]
Interventions
Interventions:
*Risk Screen - Suicide Last Done: 08/27/25 18:32
*General Assessment Last Done: 08/27/25 18:32
*Neglect/Abuse Screening Last Done: 08/27/25 20:16
*ED- Fall Risk Assessment Last Done: 08/27/25 20:17
*ED COVID-19 Vaccine History Last Done: 08/27/25 20:16
*ED Influenza Vaccine History Last Done: 08/27/25 20:16
Discharge Date and Time
Print Language: LITHUANIAN
--- NOTE | 2025-08-27 21:20 | HPS.HSE ---
Addendum entered and electronically signed by Kareem Torrez MD 08/27/25 22:08:
This is an addendum to the H&P written by Sophy Alejandra on 08/27/2025. �Patient seen and examined independently with MEDICAL COST CONSULTANT.
69-year-old male chronic HFpEF, hypertension, CAD complicated by in-stent restenosis of LAD, [place] metallic AVR on Coumadin, diabetes, renal transplant x 2, chronic anemia, essential thrombocytosis presenting with vision blacking out for 2
days, shaking, difficulty standing since today. �Diarrhea yesterday and today. �Decreased urine output. �Weight gain of 3 pounds since discharge. �Stable lower extremity edema.
He was recently admitted here from 08/21 to 08/23 for hypertensive emergency/acute CHF exacerbation. �During the admission he had echocardiogram which showed EF of 50%. �Redundant chordal structures and prominent echodensities in the atrial side
anterior leaflet. �Mild to moderate mitral regurgitation. �Blood cultures negative.
Vital signs normal.
Labs show stable anemia of 9.7. �Glucose less than 30. �Creatinine of 2.7 from 1.3 previously. �Troponin of 0.041. �Cardiac BNP of 8000 from 4500. �INR of 3.97.
Patient with hypoglycemia despite recent discontinuation of glimepiride. �Blood sugar improved from 47 to 100 with D50 administration. �Accu-Cheks every 2 hours and can decrease frequency if blood sugars stable.
Patient with evidence of acute CHF exacerbation as evidenced by increase in cardiac BNP and 4 pound weight gain. �Chest x-ray pending. �Receiving mild IV fluids in ER. �40 IV Lasix once to be given.
Patient with NORBERTO likely cardiorenal exacerbated by nephrotoxic medication. �Check I's and O's, bladder scan protocol. �Hold spironolactone and losartan. �Nephrology consulted.
Patient with nonischemic myocardial injury. �EKG shows sinus rhythm with first-degree AV block with PACs. �Troponin 0.041. �Trend troponins.
Patient with supratherapeutic INR of 3.97. �INR goal of 2-3. �Hold Coumadin tonight. �Recheck INR in the morning.
Original Note:
Family Physician
-
Family Physician: * NONE
Chief Complaint
-
generalized weakness
History of Present Illness
69 year old with PMH for CAD, kidney transplant, CHF, type 2 DM HLD, HTN presented us blacking out of vision since the Wednesday. today he felt weak, hard time to stand and was shaking. he had diarrhea yesterday and today. since the discharge he
noted decreased urine output. he gained 3 lbs since the discharge on . patient was admitted her last week with CHF. he was sent home on diuretics. denied APONTE, dizzy or syncope. denied fever, chills, cough,congestion, chest pain, sob. denied
abdominal pain,n,v,d. denied dysuria or hematuria. patient stated, no worsening LE edema
upon arrival noted to have low blood sugar. received d 50 and normal saline in ER. admitting for further management.
Medical History
Past Medical History
Past Medical History: Reports Other
Additional Past Medical History:
HTn
CHF
typ 2 DM
anxiety
Past Surgical History: Reports Other
Additional Past Surgical History:
cholecystectomy
right kidney transplant
mechanical AVR
cardiac stents
Social History
Tobacco: Non-smoker
Alcohol: None
Drug: None
Personal:
Living: With Family
Family History
Family History: Not pertinent
Allergies / Home Medications
Allergies reflects when Allergies were last updated in [facility].
Home Medications with original date entered in [facility]
Allergy/Medication List:
Allergies
Allergy/AdvReac Type Severity Reaction Status Date / Time
No Known Allergies Allergy Verified 08/27/25 18:34
Home Medications
clopidogrel 75 mg tablet 75 mg PO DAILY Blood Clot Prevention/Tx 04/23/25
diltiazem HCl 360 mg capsule,24 hr,extended release 360 mg PO DAILY Heart Disease/Condition 04/23/25
esomeprazole magnesium 40 mg capsule,delayed release 40 mg PO DAILY GERD 04/23/25
hydroxyurea 500 mg capsule 500 mg PO DAILY CHEMO 04/23/25
mycophenolate sodium 180 mg tablet,delayed release 540 mg PO BID Transplant 04/23/25
tacrolimus 1 mg capsule, immediate-release 1 mg PO BID Immunosuppressant Agent 04/23/25
warfarin 2.5 mg tablet 2.5 mg PO MOWEFR@1900 Blood Clot Prevention/Tx 04/23/25
warfarin 5 mg tablet 5 mg PO SUTUTHSA@1900 Blood Clot Prevention/Tx 04/23/25
cholecalciferol (vitamin D3) 50 mcg (2,000 unit) tablet 50 mcg PO DAILY Supplement 06/01/25
magnesium 250 mg tablet 250 mg PO DAILY Supplement 06/01/25
acetaminophen 325 mg tablet (Tylenol) 650 mg PO Q6HPRN PRN mild pain 08/21/25
losartan 100 mg tablet 100 mg PO DAILY Blood Pressure 08/21/25
polyethylene glycol 3350 17 gram oral powder packet (Miralax) 17 g PO DAILYPRN PRN constipation 08/21/25
sertraline 25 mg tablet 25 mg PO DAILY Mental Health/Anxiety 08/21/25
cyanocobalamin (vitamin B-12) 500 mcg tablet (Vitamin B-12) 1,000 mcg (2 x 500 mcg) PO DAILY #30 tabs 08/23/25
furosemide 20 mg tablet (Lasix) 20 mg PO DAILY #30 tabs 08/23/25
hydralazine 50 mg tablet 50 mg PO TID #90 tabs 08/23/25
spironolactone 25 mg tablet 12.5 mg (1/2 x 25 mg) PO DAILY #30 tabs 08/23/25
rosuvastatin 10 mg tablet (Crestor) 10 mg PO DAILY 08/27/25
Review of Systems
-
Constitutional: Reports Weight Gain and Fatigue
EENT: Reports No Symptoms
Respiratory: Reports No Symptoms
Cardiac: Reports No Symptoms
Abdomen/GI: Reports No Symptoms
: Reports No Symptoms
Musculoskeletal: Reports No Symptoms
Skin: Reports No Symptoms
Neurological: Reports Weakness
Endocrine: Reports No Symptoms
Hematologic/Lymphatic: Reports No Symptoms
Psych: Reports No Symptoms
Physical Exam
Vital Signs
Vital Signs
Temp Pulse Resp BP Pulse Ox
97.4 F 83 22 129/43 98
08/27/25 18:32 08/27/25 20:15 08/27/25 20:15 08/27/25 20:02 08/27/25 21:14
Physical Exam
General: Well Developed, Well Nourished and No Apparent Distress
HEENT: NormoCephalic, Moist mucous membranes and Atraumatic
Respiratory: Clear
Cardiac: S1/S2 and Regular Rhythm; No Murmur or Rub
GI: Soft, Non Tender, Non Distended and Normal Bowel Sounds; No Organomegaly
Rectal: Deferred by Provider
Musculoskeletal: No Clubbing, No Cyanosis and Other (b/l LE edema)
Skin: No Rash
Neuro: AO x 3 and Nonfocal/grossly intact
Psych: Calm
Laboratory Results
-
08/27/25 18:43
08/27/25 18:43
Laboratory Results
PT 38.4 Sec (11.4-14.6) H 08/27/25 20:24
INR 3.97 08/27/25 20:24
Total Bilirubin 0.4 mg/dl (0.2-1.3) 08/27/25 18:43
AST 19 U/L (17-59) 08/27/25 18:43
ALT 12 U/L (0-50) 08/27/25 18:43
Alkaline Phosphatase 66 U/L (38-126) 08/27/25 18:43
Troponin I 0.041 ng/ml H* 08/27/25 18:43
Data Reviewed
-
Lab Data: Labs Reviewed by me
Impression/Plan
-
#acute kidney injury cardiorenal
#metabolic acidosis
-cr 2.7, hold diuretics
-bladder scan
-trend BMP
-nephrology consulted
#Hypoglycemia
# type 2 Dm
-blood sugar every 2 hours until the blood sugar stabilized, then increase every 4 hours.
#CHF exacerbation with preserved EF as evident by elevated BNP and weight gain
-obtain chest x ray
-strict I &O, daily weight
-Lasix once in the ER
#anemia likely chronic
#thrombocytosis
-hgb 9.7, no active bleeding
ctm
#elevated trop r/o NSTEMI
-trop 0.041
-EKG with sinus rhythm with PACs
-trend trop
#Essential hypertension -stable.
-Cardizem,hydralazine continued
#GERD
-PPI continued
#CAD -treated for in-stent restenosis of LAD, May 2025. Continue Plavix.
#[place] metallic AVR -continue warfarin. INR supratherapeutic
-INR 3.97
-hold Coumadin tonight
-trend INR
#History of renal transplant x 2 -continue immunosuppression.
#anxiety
-sertraline continued
#HLD
-statin continued
Full code
[2025-08-27 21:36] VITALS: BP 124/45
[2025-08-27] MEDS: NSS 250 IV (21:52)
[2025-08-27 22:00] VITALS: BP 115/64
[2025-08-27 22:53] LABS: Glucose - Point of Care 111 mg/dl (70-99)
[2025-08-28] VITALS (15 sets, daily range): BP systolic 105–155; BP diastolic 33–60; BMI 26.2
[2025-08-28] MEDS: LASIX 40 MG IV (00:26)
[2025-08-28] MEDS: APRESOLINE 50 MG PO ×4 (01:59→22:23)
[2025-08-28 02:09] LABS: Glucose - Point of Care 64 mg/dl (70-99)
--- NOTE | 2025-08-28 02:09 | PTCARENOTE ---
received patient from ED. On arrival patient reported blurry vision and said 'it happens when my sugar is low'. Checked blood sugar with a result of 64, hypoglycemic protocol followed. Otherwise patient without complaints. Assessment and vital signs
charted. admission questions questioned by patient. CHG wipes done. call briggs in reach.
[2025-08-28 02:25] LABS: Glucose - Point of Care 73 mg/dl (70-99)
[2025-08-28] MEDS: TYLENOL 650 MG PO (02:59)
[2025-08-28 03:30] LABS: Hematocrit 26.5 % (39.0-52.0); Hemoglobin 8.4 g/dL (13.0-18.0); Mean Corp Hgb Conc. 31.7 g/dL (33.0-37.0); Mean Corpuscular Volume 101.9 fL (80.0-94.0); Platelet Count 825 10^3/uL (130-400); Red Cell Dist. Width 14.8 % (11.5-14.5)
[2025-08-28 03:47] LABS: Blood Urea Nitrogen 45 mg/dl (9-20); Calcium 7.7 mg/dl (8.4-10.2); Carbon Dioxide 18 mmol/L (22-30); Chloride 108 mmol/L (98-107); Estimated Creatinine Clearance 23 ml/min; Glucose 78 mg/dl (70-99); HDL Cholesterol 34 mg/dl; LDL Cholesterol, Calculated 81 mg/dl; Magnesium 1.4 mg/dl (1.6-2.3); Potassium 4.4 mmol/L (3.5-5.1); Sodium 135 mmol/L (135-145); Very Low Density Lipoprotein 20 mg/dl (0-30); eGFR 22.56
[2025-08-28 03:57] LABS: Troponin I 0.038 ng/ml
[2025-08-28 04:16] LABS: Glucose - Point of Care 49 mg/dl (70-99)
[2025-08-28] MEDS: DEXTROSE 50% SYRINGE 12.5 GRAMS IV ×6 (04:36→09:49)
[2025-08-28 04:40] LABS: Glucose - Point of Care 38 mg/dl (70-99)
[2025-08-28 05:03] LABS: Glucose - Point of Care 80 mg/dl (70-99)
[2025-08-28 06:07] LABS: Glucose - Point of Care 27 mg/dl (70-99)
[2025-08-28 06:22] LABS: Glucose - Point of Care 64 mg/dl (70-99)
[2025-08-28] MEDS: D5W 1000 IV (06:23)
--- NOTE | 2025-08-28 06:36 | PTCARENOTE ---
patient's blood sugar running low all shift for this rn. last blood sugar was 27, pushed dextrose and notified BLOOD TESTER. Patient was shaky and diaphoretic, symptoms reported to BLOOD TESTER as well. Recheck sugar after first half of dextrose and sugar only 64,
pushed dextrose again and notified BLOOD TESTER again. D5 @ 30 ml/hr ordered and hung. Patient now Q1 accucheck. continuing to monitor. call briggs in reach.
[2025-08-28 06:43] LABS: Glucose - Point of Care 91 mg/dl (70-99)
--- NOTE | 2025-08-28 07:44 | W.PN.UPDATE ---
Update Note
Progress Note Update
BS 49>38> 80>27 symptomatic multiple Dextrose IV given.
will order D5W 30cc/hr,
[2025-08-28 07:48] LABS: Glucose - Point of Care 34 mg/dl (70-99)
[2025-08-28] MEDS: PROTONIX 40 MG PO (08:00)
[2025-08-28] MEDS: PLAVIX 75 MG PO (08:00)
[2025-08-28] MEDS: ZOLOFT 25 MG PO (08:00)
[2025-08-28] MEDS: HYDREA 500 MG PO (08:00)
[2025-08-28] MEDS: MAGNESIUM OXIDE 200 MG PO (08:00)
[2025-08-28] MEDS: PROGRAF 1 MG PO ×2 (08:00→22:24)
[2025-08-28] MEDS: CRESTOR 10 MG PO (08:00)
[2025-08-28] MEDS: CARDIZEM CD 360 MG PO (08:01)
[2025-08-28] MEDS: MYFORTIC DELAYED REL. 540 MG PO ×2 (08:01→22:23)
[2025-08-28] MEDS: VITAMIN B-12 1000 MCG PO (08:01)
[2025-08-28 08:09] LABS: Glucose - Point of Care 40 mg/dl (70-99)
[2025-08-28 08:28] LABS: Glucose - Point of Care 87 mg/dl (70-99)
--- NOTE | 2025-08-28 09:29 | W.PN.HOSP.TC ---
Today's Communication/Plan
-
Every hour's Accu-Chek.
Oral and IV glucose.
Blood cultures
Cortisol level.
Adjust warfarin dose with daily INR.
Assessment / Plan
Assessment / Plan
Impression:
Symptomatic hypoglycemia.
Concern for acute CHF preserved EF.
NORBERTO
Normal anion gap metabolic acidosis
Reported episode of diarrhea day prior to presentation
Hypomagnesemia
Non-AZ troponin elevation
Conditions prior to admission:
Recent hospitalization for acute CHF responded to diuresis. Transitioned and discharged on diuretic regimen including Lasix and spironolactone.
CAD.
� Treated in-stent stenosis of LAD May 2025. On Plavix
Paroxysmal atrial fibrillation
[place] mechanical AVR
Anticoagulation with warfarin
Diabetes, type II
Renal transplant
CKD stage III AA
Chronic immunosuppression.
Chronic macrocytic anemia.
Chronic thrombocytosis
Anxiety/depression
Plan
Persistent and symptomatic hypoglycemia
Diabetes type 2
Recent hemoglobin A1c 5.3.
Had been taking off sulfonylurea over last admission.
LFTs within normal limits
Symptoms improved with IV and oral glucose on presentation.
Check cortisol
Blood cultures
Continue glucose infusion
Continue regular diet.
Basal bolus protocol with serial Accu-Cheks
If persistent, consider Sandostatin trial.
Concern for acute CHF given weight gain around 4 pounds since last admission: Dry weight 75 kg (80 kg on presentation)
Echo 08/22:
1. Normal LV size and low normal function.Ejection fraction is 50% by visual assessment.
2. Moderate left ventricular hypertrophy.
3. Right ventricular size and systolic function are within normal limits.
4. Indexed left atrial volume is severely abnormal (>48 ml/m2).
5. A mechanical aortic valve is in place with mild thickening. Peak gradient 31mmHg/Mean 16mmHg -.
6. Thickened mitral valve leaflets. There are redundant chordal structures and prominent echodensities on the atrial side of the anterior leaflet. Mild to moderate mitral regurgitation. mean gradient 3 mmHg. Could consider LISHA to better evaluate.
7. Mild tricuspid regurgitation. Estimated pulmonary artery pressure of 51 mmHg assuming a right atrial pressure of 8 mmHg.
8. There are no prior studies available for comparison.
Has peripheral edema
Elevated pro CHF BNP
Stable respiratory status upon presentation
Chest x-ray comparison with improved interstitial edema.
Status post single dose of Lasix given on admission.
? If cardiorenal state.
Given NORBERTO, hold spironolactone, losartan,
Continue diltiazem and hydralazine. Avoid hypotension
NORBERTO.
CKD stage IIIa baseline creatinine 1.0�1 point
Normal anion gap metabolic acidosis
Renal transplant.
Bladder scan
Consider renal ultrasound.
Urinalysis.
Continue Myfortic and Prograf.
Consider alkalinized IV fluids.
CAD.
Recent in-stent stenosis treated.
Continue Plavix, statin.
Paroxysmal atrial fibrillation
Continue diltiazem
AVR.
On anticoagulation with warfarin.
INR on presentation 3.94.
Follow daily INR
Continue warfarin adjust dose accordingly.
Continue PPI for GI prophylax
Chronic macrocytic anemia
Chronic thrombocytosis? Primary thrombocytosis?
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
CODE STATUS full code. Confirmed with patient
DVT prophylaxis warfarin
Anticipated Discharge: 24 - 48 hours
Subjective/Interval History
-
Date of Service: August 28, 2025
Objective Data
-
Labs:
Laboratory Results
08/28/25 08/28/25
03:08 08:41
WBC 7.5
Hgb 8.4 L
Hct 26.5 L
Plt Count 825 H
PT Pending
INR Pending
Sodium 135
Potassium 4.4
Chloride 108 H
Carbon Dioxide 18 L
BUN 45 H
Creatinine 2.9 H
Glucose 78
Calcium 7.7 L
Vital Signs:
Vital Signs
Temp Pulse Resp BP Pulse Ox
98.4 F 85 25 129/46 93
08/28/25 04:13 08/28/25 08:01 08/28/25 07:45 08/28/25 08:01 08/28/25 07:45
Physical Exam
-
General: Well Developed and No Apparent Distress
HEENT: Normocephalic, Atraumatic and Moist Mucous Membranes
Respiratory: Clear to Auscultation
Cardiac: Regular Rhythm, S1/S2 and Murmur; Negative Rub or Gallop
GI: Soft, Nontender, Nondistended and Normal Bowel Sounds; Negative Organomegaly
Rectal: Deferred by Provider
Musculoskeletal: No Clubbing, No Cyanosis and No Edema
Skin: Negative Rash
Neuro: Nonfocal/Grossly Intact
[2025-08-28 09:56] LABS: Glucose - Point of Care 40 mg/dl (70-99)
[2025-08-28 10:19] LABS: INR 3.61; PT 35.7 Sec (11.4-14.6)
[2025-08-28 10:20] LABS: Glucose - Point of Care 89 mg/dl (70-99)
--- NOTE | 2025-08-28 10:53 | PTCARENOTE ---
Patient AAOx3. Q1H accuchecks with results ranging from 34-89 today, see mar and worklist for treatments. Hypoglycemic symptoms include fuzzy vision, shaky and sweating. Discussed with MD. FRANKS. Continuing to closely monitor.
[2025-08-28 10:59] LABS: Troponin I 0.043 ng/ml
[2025-08-28 11:15] LABS: Cortisol, Random 16.5 ug/dl
[2025-08-28 11:24] LABS: Glucose - Point of Care 106 mg/dl (70-99)
--- NOTE | 2025-08-28 11:33 | W.CON.NEPH ---
Consultation
-
Date/Time Consultation Requested: 08/28/2025 9 AM
Date/Time Consultation Performed: 08/28/2025 10 AM
Requesting Provider: Dr. Nunn
Performing Provider: Dr. Ellis
Reason for Consultation: NORBERTO
Medical History
-
Chief Complaint: Hypoglycemia
History of Present Illness:
This is a 69-year-old gentleman who has diabetes mellitus type 2 previously treated with glipizide which was stopped last . He has a donor renal transplant from December 2014 performed at [facility]. He has baseline creatinine
averages between 1 and 1.3 by his report. He is on a triple drug regimen with tacrolimus, Myfortic, prednisone. He also has essential thrombocytosis controlled with Hydrea. He has hypertension also stable on a multidrug regimen. He has atrial
fibrillation which was diagnosed in April of this year now on calcium channel matthew therapy for rate control. He is on Coumadin for anticoagulation mostly because he has a [place] mechanical AVR from 2001. He was admitted because of vision
change and persistent hypoglycemia since Wednesday, 3 days prior to admission. He had discontinued glipizide on as noted but reported hypoglycemic episodes which he could not improve. At the time admission his creatinine was 2.7
representing acute kidney injury.
Past Medical History
donor renal transplant 2011, failed
donor renal transplant January 04, 2015 [facility], right lower quadrant, four antigen mismatch
Hypertension
Coronary artery disease with stenting x 2 in October 2024 and in May 2025
Mechanical AVR 09/08/2002
Atrial fibrillation
Diabetes mellitus type 2, records list this as because of ESRD
Prior left AV fistula clotted
PD catheter removed (initially on hemodialysis and converted to peritoneal dialysis prior to first transplant)
Heart failure preserved ejection fraction
Cholecystectomy
Incisional hernia repair
Tonsillectomy
Essential thrombocytosis
Social History
Tobacco: Non-Smoker
Alcohol: None
Family History
Family History: Not Pertinent
Allergies / Home Medications
Allergy/AdvReac Type Severity Reaction Status Date / Time
No Known Allergies Allergy Verified 08/27/25 18:34
�Medication �Instructions �Recorded �Confirmed �Type
clopidogrel 75 mg tablet 75 mg PO DAILY Blood Clot 04/23/25 08/27/25 History
Prevention/Tx
diltiazem HCl 360 mg capsule,24 360 mg PO DAILY Heart 04/23/25 08/27/25 History
hr,extended release Disease/Condition
esomeprazole magnesium 40 mg 40 mg PO DAILY GERD 04/23/25 08/27/25 History
capsule,delayed release
hydroxyurea 500 mg capsule 500 mg PO DAILY CHEMO 04/23/25 08/27/25 History
mycophenolate sodium 180 mg 540 mg PO BID Transplant 04/23/25 08/27/25 History
tablet,delayed release
tacrolimus 1 mg capsule, 1 mg PO BID Immunosuppressant Agent 04/23/25 08/27/25 History
immediate-release
warfarin 2.5 mg tablet 2.5 mg PO MOWEFR@1900 Blood Clot 04/23/25 08/27/25 History
Prevention/Tx
warfarin 5 mg tablet 5 mg PO SUTUTHSA@1900 Blood Clot 04/23/25 08/27/25 History
Prevention/Tx
cholecalciferol (vitamin D3) 50 50 mcg PO DAILY Supplement 06/01/25 08/27/25 History
mcg (2,000 unit) tablet
magnesium 250 mg tablet 250 mg PO DAILY Supplement 06/01/25 08/27/25 History
acetaminophen 325 mg tablet 650 mg PO Q6HPRN PRN mild pain 08/21/25 08/27/25 History
(Tylenol)
losartan 100 mg tablet 100 mg PO DAILY Blood Pressure 08/21/25 08/27/25 History
polyethylene glycol 3350 17 gram 17 g PO DAILYPRN PRN constipation 08/21/25 08/27/25 History
oral powder packet (Miralax)
sertraline 25 mg tablet 25 mg PO DAILY Mental 08/21/25 08/27/25 History
Health/Anxiety
cyanocobalamin (vitamin B-12) 500 1,000 mcg (2 x 500 mcg) PO DAILY 08/23/25 08/27/25 Rx
mcg tablet (Vitamin B-12) #30 tabs
furosemide 20 mg tablet (Lasix) 20 mg PO DAILY #30 tabs 08/23/25 08/27/25 Rx
hydralazine 50 mg tablet 50 mg PO TID #90 tabs 08/23/25 08/27/25 Rx
spironolactone 25 mg tablet 12.5 mg (1/2 x 25 mg) PO DAILY #30 08/23/25 08/27/25 Rx
tabs
rosuvastatin 10 mg tablet (Crestor) 10 mg PO DAILY High Cholesterol 08/27/25 08/27/25 History
Review of Systems
-
Vision improved
No chest pain or shortness of breath
No edema
No issues with diet
All other systems: Negative unless noted
Physical Exam
Vital Signs
Vital Signs
Temp Pulse Resp BP Pulse Ox
98.4 F 89 24 130/45 93
08/28/25 04:13 08/28/25 11:15 08/28/25 11:15 08/28/25 10:00 08/28/25 11:15
Lab Results
WBC 7.5 10^3/uL (4.8-10.8) 08/28/25 03:08
RBC 2.60 10^6/uL (4.70-6.10) L 08/28/25 03:08
Hgb 8.4 g/dL (13.0-18.0) L 08/28/25 03:08
Hct 26.5 % (39.0-52.0) L 08/28/25 03:08
Plt Count 825 10^3/uL (130-400) H 08/28/25 03:08
Sodium 135 mmol/L (135-145) 08/28/25 03:08
Potassium 4.4 mmol/L (3.5-5.1) 08/28/25 03:08
Chloride 108 mmol/L (98-107) H 08/28/25 03:08
Carbon Dioxide 18 mmol/L (22-30) L 08/28/25 03:08
BUN 45 mg/dl (9-20) H 08/28/25 03:08
Creatinine 2.9 mg/dL (0.7-1.3) H 08/28/25 03:08
eGFR 22.56 08/28/25 03:08
Glucose 78 mg/dl (70-99) 08/28/25 03:08
Calcium 7.7 mg/dl (8.4-10.2) L 08/28/25 03:08
Iih-S-Nvuaatpqmsi Pept 8140 pg/ml 08/27/25 18:43
Albumin 3.8 g/dl (3.5-5.0) 08/27/25 18:43
Laboratory Tests
08/28/25
09:58
Random Cortisol 16.5
[facility]
July 30, 2025 urinalysis bland, urine protein creatinine ratio 0.4, sodium 143, potassium 4.6, bicarbonate 25, creatinine 1.28, phosphorus 3.1, calcium 9.1, tacrolimus 8.6, BK virus plasma and urine negative, CMV negative
Physical Exam
Patient is awake alert oriented and in no distress. Mood and affect were pleasant, insight and judgment were good. Pupils are equal round and reactive to light, extraocular movements are intact, sclera were anicteric. Hearing was normal, ears and
nose are intact. Oropharynx was clear. Neck was supple with trachea midline and no thyromegaly. Heart was regular rate and rhythm without rubs. Lower extremities without edema. Lungs were clear to auscultation bilaterally and with normal
excursion. Abdomen was soft, nontender, with normal active bowel sounds, and no hepatosplenomegaly. Skin was without rash and with normal turgor.
Data Reviewed
-
Radiology: Image Personally Visualized and interpreted (Chest x-ray 08/27/2025 by my reading cardiomegaly, vascular prominence)
Medical Tests (Nuc Med, Echo etc): Image Personally Visualized and interpreted (EKG 08/28/2025 by my reading first AV block septal Q lateral ST-T wave abnormality) and Report Reviewed by me (Echocardiogram 08/22/2025 E ejection fraction 50%, moderate
MR, mild TR)
Labs: Labs Reviewed by me
Old Records: Reviewed
Assessment/Plan
-
Assessment
Hypoglycemia
Hypertension
NORBERTO
donor renal transplant
CKD 3A, baseline 1.2
Mechanical AVR
Paroxysmal atrial fibrillation
Coronary artery disease
Essential thrombocytosis
Metabolic acidosis
Elevated troponin
Hypomagnesemia
Hypocalcemia
Plan
Convert to bicarbonate based IV fluids with dextrose
Check tacrolimus level
Continue Myfortic and prednisone
Check urine studies
Check PVR
Check transplant ultrasound
Follow BMP
[2025-08-28] MEDS: SODIUM BICARBONATE 1150 MEQ IV (12:12)
[2025-08-28] MEDS: NOVOLOG FLEXPEN-LOW RESISTANCE SC ×2 (12:12→17:37)
[2025-08-28] MEDS: MAGNESIUM SULFATE 50 IV (12:12)
[2025-08-28 12:28] LABS: Glucose - Point of Care 113 mg/dl (70-99)
[2025-08-28 13:56] LABS: Glucose - Point of Care 74 mg/dl (70-99)
--- NOTE | 2025-08-28 13:58 | CM ---
Initial Assessment Completed By MICHELLE Hagen.
Patient lives independently with his in a 2 Story House with 1 step to enter and 10 inside, bathroom on the 2nd level. No DME, No Respiratory, No VN/PT, No inpatient rehab.
PCP: Dr. Saira Olsen
Pharmacy: [facility]
Patient has transport when ready.
[2025-08-28 14:46] LABS: Urine Character Clear (Clear)
[2025-08-28 14:46] LABS: Troponin I 0.035 ng/ml
[2025-08-28 15:00] LABS: Glucose - Point of Care 57 mg/dl (70-99)
[2025-08-28 15:01] LABS: Urine Red Blood Cell 0-2 /HPF (0-2)
[2025-08-28 15:18] LABS: Glucose - Point of Care 87 mg/dl (70-99)
[2025-08-28 16:16] LABS: Glucose - Point of Care 104 mg/dl (70-99)
[2025-08-28 17:22] LABS: Glucose - Point of Care 76 mg/dl (70-99)
[2025-08-28 18:34] LABS: Glucose - Point of Care 97 mg/dl (70-99)
[2025-08-28 20:12] LABS: Glucose - Point of Care 141 mg/dl (70-99)
[2025-08-28 21:30] LABS: Glucose - Point of Care 200 mg/dl (70-99)
[2025-08-28 22:20] LABS: Glucose - Point of Care 165 mg/dl (70-99)
[2025-08-28 23:19] LABS: Glucose - Point of Care 164 mg/dl (70-99)
[2025-08-29] VITALS (18 sets, daily range): BP systolic 119–161; BP diastolic 41–83; PULSE 103; O2SAT 94–98; BMI 26.8
[2025-08-29 01:08] LABS: Glucose - Point of Care 137 mg/dl (70-99)
[2025-08-29] MEDS: MELATONIN 5 MG PO ×2 (03:30→21:19)
[2025-08-29 03:35] LABS: Glucose - Point of Care 128 mg/dl (70-99)
[2025-08-29] MEDS: SODIUM BICARBONATE 1150 MEQ IV (05:50)
[2025-08-29 06:09] LABS: Glucose - Point of Care 125 mg/dl (70-99)
[2025-08-29 07:07] LABS: Glucose - Point of Care 122 mg/dl (70-99)
[2025-08-29 07:08] LABS: INR 2.63; PT 28.1 Sec (11.4-14.6)
[2025-08-29 07:12] LABS: Hematocrit 27.6 % (39.0-52.0); Hemoglobin 8.5 g/dL (13.0-18.0); Mean Corp Hgb Conc. 30.8 g/dL (33.0-37.0); Mean Corpuscular Volume 103.4 fL (80.0-94.0); Nucleated Red Blood Cells % 0 % (-); Platelet Count 808 10^3/uL (130-400); Red Cell Dist. Width 14.4 % (11.5-14.5)
--- NOTE | 2025-08-29 07:26 | PTCARENOTE ---
electronic development technician note. Patient had a 120 beat run of Vtach around 0200. Pt asymptomatic and resting in bed. Returned to NSR with first degree HB and occasional PACs on the monitor, hr 70-80s. HORACE Gorman made aware.
[2025-08-29 07:30] LABS: Blood Urea Nitrogen 48 mg/dl (9-20); Calcium 8.1 mg/dl (8.4-10.2); Carbon Dioxide 24 mmol/L (22-30); Chloride 104 mmol/L (98-107); Estimated Creatinine Clearance 27 ml/min; Glucose 110 mg/dl (70-99); Potassium 5.1 mmol/L (3.5-5.1); Sodium 135 mmol/L (135-145); eGFR 26.96
[2025-08-29] MEDS: PLAVIX 75 MG PO (08:26)
[2025-08-29] MEDS: MAGNESIUM OXIDE 200 MG PO (08:26)
[2025-08-29] MEDS: CARDIZEM CD 360 MG PO (08:26)
[2025-08-29] MEDS: VITAMIN B-12 1000 MCG PO (08:27)
[2025-08-29] MEDS: MYFORTIC DELAYED REL. 540 MG PO ×2 (08:28→19:11)
[2025-08-29] MEDS: ZOLOFT 25 MG PO (08:28)
[2025-08-29] MEDS: PROTONIX 40 MG PO (08:28)
[2025-08-29] MEDS: HYDREA 500 MG PO (08:28)
[2025-08-29] MEDS: CRESTOR 10 MG PO (08:28)
[2025-08-29] MEDS: APRESOLINE 50 MG PO ×3 (08:28→21:19)
[2025-08-29] MEDS: PROGRAF 1 MG PO ×2 (08:28→19:11)
[2025-08-29] MEDS: NOVOLOG FLEXPEN-LOW RESISTANCE SC (08:33)
[2025-08-29 08:44] LABS: Glucose - Point of Care 129 mg/dl (70-99)
[2025-08-29 11:15] LABS: Glucose - Point of Care 215 mg/dl (70-99)
--- NOTE | 2025-08-29 11:44 | PTCARENOTE ---
attending notified pt c/o 01/29 chest pain/pressure, EKG obtained, VS WNL although pt c/o SOB. cardiology consult.
--- NOTE | 2025-08-29 12:23 | W.PN.NEPH.PH ---
Today's Communication / Plan
-
attempt wean off IVF
Assessment/Plan
-
Assessment
Hypoglycemia
Hypertension
NORBERTO
donor renal transplant
CKD 3A, baseline 1.2
Mechanical AVR
Paroxysmal atrial fibrillation
Coronary artery disease
Essential thrombocytosis
Metabolic acidosis
Elevated troponin
Hypomagnesemia
Hypocalcemia
Plan
NORBERTO-likely prerenal , bland UA, neg US and Fena low 0.34
met acidosis is better , wean off IVF in view of recent CHF
encourage po intake , BG stabilized now
pending tacrolimus level
Continue Myfortic and prednisone
BP stable
Follow BMP
d/w pt and nursing
-
-
Date of Service: August 29, 2025
CC / HPI / ROS
-
Chief Complaint:
NORBERTO h/o KTP
History of Present Illness:
cr better at 2.5, UOP not measured
BP sable
plt improving to 808, hb stable 8.5
Review of Systems:
no cp or sob at rest
poor appetite
no n/v
Labs
-
Labs:
WBC 6.0 10^3/uL (4.8-10.8) 08/29/25 05:50
RBC 2.67 10^6/uL (4.70-6.10) L 08/29/25 05:50
Hgb 8.5 g/dL (13.0-18.0) L 08/29/25 05:50
Hct 27.6 % (39.0-52.0) L 08/29/25 05:50
Plt Count 808 10^3/uL (130-400) H 08/29/25 05:50
Sodium 135 mmol/L (135-145) 08/29/25 05:50
Potassium 5.1 mmol/L (3.5-5.1) 08/29/25 05:50
Chloride 104 mmol/L (98-107) 08/29/25 05:50
Carbon Dioxide 24 mmol/L (22-30) 08/29/25 05:50
BUN 48 mg/dl (9-20) H 08/29/25 05:50
Creatinine 2.5 mg/dL (0.7-1.3) H 08/29/25 05:50
eGFR 26.96 08/29/25 05:50
Glucose 110 mg/dl (70-99) H 08/29/25 05:50
Calcium 8.1 mg/dl (8.4-10.2) L 08/29/25 05:50
Albumin 3.8 g/dl (3.5-5.0) 08/27/25 18:43
Physical Exam
-
Vital Signs:
Vital Signs
Temp Pulse Resp BP Pulse Ox
98.2 F 93 16 156/70 93
08/29/25 03:00 08/29/25 08:26 08/29/25 07:03 08/29/25 08:26 08/29/25 08:55
Cardiovascular:: Regular rate and rhythm
Respiratory:: Bilateral: CTA (decreased)
Lung Excursion:: Normal
Abdomen:: Nontender and Soft
Extremity Edema:: None: Bilateral:
Arredondo Catheter: No
--- NOTE | 2025-08-29 12:37 | W.PN.HOSP.TC ---
Today's Communication/Plan
-
Lasix
Stop IV fluids.
Evaluation for VT
Repeat magnesium level
Resume Coumadin
With hypoglycemia improved, change Accu-Cheks to every 4 hours
Assessment / Plan
Assessment / Plan
Impression:
Symptomatic hypoglycemia.
Concern for acute CHF preserved EF.
NORBERTO
Normal anion gap metabolic acidosis
Reported episode of diarrhea day prior to presentation
Hypomagnesemia
Non-NE troponin elevation
Conditions prior to admission:
Recent hospitalization for acute CHF responded to diuresis. Transitioned and discharged on diuretic regimen including Lasix and spironolactone.
CAD.
� Treated in-stent stenosis of LAD May 2025. On Plavix
Paroxysmal atrial fibrillation
[place] mechanical AVR
Anticoagulation with warfarin
Diabetes, type II
Renal transplant
CKD stage III AA
Chronic immunosuppression.
Chronic macrocytic anemia.
Chronic thrombocytosis
Anxiety/depression
Plan
Persistent and symptomatic hypoglycemia
Diabetes type 2
Recent hemoglobin A1c 5.3.
Had been taking off sulfonylurea over last admission.
LFTs within normal limits
Symptoms improved with IV and oral glucose on presentation.
Random serum cortisol within normal limits
Blood cultures negative to date
Hypoglycemia improved with glucose infusion.
Discussed with the patient, there is a possibility patient took sulfonylurea by mistake causing persistent hypoglycemia in the settings of NORBERTO and decreased renal clearance
Continue regular diet.
Basal bolus protocol with serial Accu-Cheks
If persistent, consider Sandostatin trial.
Concern for acute CHF given weight gain around 4 pounds since last admission: Dry weight 75 kg (80 kg on presentation)
Echo 08/22:
1. Normal LV size and low normal function.Ejection fraction is 50% by visual assessment.
2. Moderate left ventricular hypertrophy.
3. Right ventricular size and systolic function are within normal limits.
4. Indexed left atrial volume is severely abnormal (>48 ml/m2).
5. A mechanical aortic valve is in place with mild thickening. Peak gradient 31mmHg/Mean 16mmHg -.
6. Thickened mitral valve leaflets. There are redundant chordal structures and prominent echodensities on the atrial side of the anterior leaflet. Mild to moderate mitral regurgitation. mean gradient 3 mmHg. Could consider LISHA to better evaluate.
7. Mild tricuspid regurgitation. Estimated pulmonary artery pressure of 51 mmHg assuming a right atrial pressure of 8 mmHg.
8. There are no prior studies available for comparison.
On 08/29 with chest pressure and shortness of breath
Weight is up 79 kg
Will hold further fluids.
Provide single dose of Lasix 40 mg IV now.
Given NORBERTO, hold spironolactone, losartan,
Continue diltiazem and hydralazine. Avoid hypotension
NSVT, asymptomatic
Repeat magnesium level
Continue telemetry monitoring
Consider addition of beta-matthew
NORBERTO.
CKD stage IIIa baseline creatinine 1.0�1 point
Normal anion gap metabolic acidosis
Renal transplant.
Bladder scan with no retention
UA bland
Renal sonogram with no abnormalities
Ivelisse 0.35
Creatinine trending down with alkalinized IV fluids
Attempt to wean off
Consider renal ultrasound.
Continue Myfortic and Prograf.
Consider alkalinized IV fluids.
CAD.
Recent in-stent stenosis treated.
Continue Plavix, statin.
Paroxysmal atrial fibrillation
Continue diltiazem
AVR.
On anticoagulation with warfarin.
INR on presentation 3.94. Improved to 2.6
Follow daily INR
Continue warfarin adjust dose accordingly.
Continue PPI for GI prophylax
Chronic macrocytic anemia
Chronic thrombocytosis? Primary thrombocytosis?
On hydroxyurea [employer]
CODE STATUS full code. Confirmed with patient
DVT prophylaxis warfarin
Anticipated Discharge: 24 - 48 hours
Subjective/Interval History
-
Date of Service: August 29, 2025
Objective Data
-
Labs:
Laboratory Results
08/29/25
05:50
WBC 6.0
Hgb 8.5 L
Hct 27.6 L
Plt Count 808 H
PT 28.1 H
INR 2.63
Sodium 135
Potassium 5.1
Chloride 104
Carbon Dioxide 24
BUN 48 H
Creatinine 2.5 H
Glucose 110 H
Calcium 8.1 L
Vital Signs:
Vital Signs
Temp Pulse Resp BP Pulse Ox
98.2 F 93 16 156/70 93
08/29/25 03:00 08/29/25 08:26 08/29/25 07:03 08/29/25 08:26 08/29/25 08:55
I&O
08/28/25 08/29/25 08/30/25
06:59 06:59 06:59
Intake Total 1320 / 1320
Balance 1320 / 1320
Physical Exam
-
General: Well Developed and No Apparent Distress
HEENT: Normocephalic, Atraumatic and Moist Mucous Membranes
Respiratory: Clear to Auscultation
Cardiac: Regular Rhythm, S1/S2 and Murmur; Negative Rub or Gallop
GI: Soft, Nontender, Nondistended and Normal Bowel Sounds; Negative Organomegaly
Rectal: Deferred by Provider
Musculoskeletal: No Clubbing, No Cyanosis and No Edema
Skin: Negative Rash
Neuro: Nonfocal/Grossly Intact
[2025-08-29 12:45] LABS: Troponin I 0.035 ng/ml
[2025-08-29 12:49] LABS: Glucose - Point of Care 176 mg/dl (70-99)
[2025-08-29] MEDS: LASIX 40 MG IV (12:51)
--- NOTE | 2025-08-29 13:26 | CON.CAR ---
Addendum entered and electronically signed by Francois Jin DO 08/29/25 17:31:
I saw and examined the patient.
The Beam Worker's note was reviewed and I agree with the note.
Comment:
Plan:
HPI: He presented with hypoglycemia and weakness which started several days after recent discharge 08/23/2025. On arrival noted to be in acute renal failure with creatinine up to 2.7. Nephrology following. He has history of solitary kidney with
prior renal transplant and CKD stage III with baseline creatinine of approximately 1.3. On arrival to ER cr was 2.7. He was given dextrose with sodium bicarb, and today noted to have shortness of breath with chest pressure. proBNP 7060 today and
chest x-ray with evidence of pulmonary edema.
Pt received IV Lasix 40 mg x 1 and will assess response.
Dry weight previously felt to be 159 pounds.
Pt would not want to go back on HD
Wean O2 as able.
Troponins likely nonMI trop and flat in 0.03�0.04 range (were negative x 1 last admission).
Cont medical therapy of likely nonMI troponin
He does have history LAD PCI 05/2025. EKG without ischemic changes.
Patient reportedly with 120 beat run of VT last evening, with patient asymptomatic. On review of telemetry, this appears to be artifact.
Continue to monitor K/mag which remain stable. Will continue to follow on telemetry
Continue outpatient warfarin, Plavix. INR 2.63 on 08/29. Goal INR 2-3. Hemoglobin stable at 8.5
Recent echo 08/22 as above with preserved EF, will not repeat at this time.
- Amyloid labs were ordered last admission - SPEP and UPEP negative.
Primary continuous mining machine company miner updated.
Original Note:
Consultation
Consultation Request
Date/Time Consultation Performed: 08/29/25
Requesting Provider: Dr. Nunn
Performing Provider: Mckayla Shah PA-C for Dr. Jin
Reason for Consultation: CHF
Medical History
-
Chief Complaint: hypoglycemia
History of Present Illness:
Patient is a 69-year-old male with past medical history of [place] mechanical aortic valve 2001, chronic Coumadin therapy managed by [facility], CAD status post MIs resulting in LAD PCI 10/2024 at [facility] and 05/2025 at
[facility] with medical management of small RCA, solitary kidney status post renal transplant on chronic immunosuppressive therapy, CKD stage III, diabetes, hypertension, paroxysmal atrial fibrillation status post PVI 04/2025 who had
admission to 08/21-08/23/25 for HTN emergency, CHF. Prior to discharge labs were drawn to evaluate for possible amyloid cardiomyopathy. He was discharged on p.o. Lasix 20 mg daily and spironolactone 12.5 mg daily was added during admission. He
now presents back due to hypoglycemia and weakness. On arrival to ER, was noted to have NORBERTO with creatinine up to 2.7. He was given dextrose with sodium bicarb for both sugar correction as well as improvement in kidney function, however now with
shortness of breath and chest pain resulting in cardiology consultation
PMH:
Chronic HFpEF
[place] mechanical aortic valve 2001
Chronic Coumadin therapy, managed by [facility] [place]
Paroxysmal atrial fibrillation status post PVI 04/2025
CAD
s/p NSTEMI resulting in LAD PCI with residual small RCA disease, medically managed 10/2024 at [facility]
s/p NSTEMI with LAD PCI 05/2025 at [facility]
Solitary kidney status post renal transplant
Chronic immunosuppressed state
CKD stage III
Diabetes
Hypertension
Past Medical History
Past Medical History: Other
Social History
Tobacco: Non-Smoker
Alcohol: Occasional
Personal:
Living: With Family
Employment: Retired
Family History
Family History: CAD and Cancer
Allergies / Home Medications
Allergy/AdvReac Type Severity Reaction Status Date / Time
No Known Allergies Allergy Verified 08/27/25 18:34
�Medication �Instructions �Recorded �Confirmed �Type
clopidogrel 75 mg tablet 75 mg PO DAILY Blood Clot 04/23/25 08/27/25 History
Prevention/Tx
diltiazem HCl 360 mg capsule,24 360 mg PO DAILY Heart 04/23/25 08/27/25 History
hr,extended release Disease/Condition
esomeprazole magnesium 40 mg 40 mg PO DAILY GERD 04/23/25 08/27/25 History
capsule,delayed release
hydroxyurea 500 mg capsule 500 mg PO DAILY CHEMO 04/23/25 08/27/25 History
mycophenolate sodium 180 mg 540 mg PO BID Transplant 04/23/25 08/27/25 History
tablet,delayed release
tacrolimus 1 mg capsule, 1 mg PO BID Immunosuppressant Agent 04/23/25 08/27/25 History
immediate-release
warfarin 2.5 mg tablet 2.5 mg PO MOWEFR@1900 Blood Clot 04/23/25 08/27/25 History
Prevention/Tx
warfarin 5 mg tablet 5 mg PO SUTUTHSA@1900 Blood Clot 04/23/25 08/27/25 History
Prevention/Tx
cholecalciferol (vitamin D3) 50 50 mcg PO DAILY Supplement 06/01/25 08/27/25 History
mcg (2,000 unit) tablet
magnesium 250 mg tablet 250 mg PO DAILY Supplement 06/01/25 08/27/25 History
acetaminophen 325 mg tablet 650 mg PO Q6HPRN PRN mild pain 08/21/25 08/27/25 History
(Tylenol)
losartan 100 mg tablet 100 mg PO DAILY Blood Pressure 08/21/25 08/27/25 History
polyethylene glycol 3350 17 gram 17 g PO DAILYPRN PRN constipation 08/21/25 08/27/25 History
oral powder packet (Miralax)
sertraline 25 mg tablet 25 mg PO DAILY Mental 08/21/25 08/27/25 History
Health/Anxiety
cyanocobalamin (vitamin B-12) 500 1,000 mcg (2 x 500 mcg) PO DAILY 08/23/25 08/27/25 Rx
mcg tablet (Vitamin B-12) #30 tabs
furosemide 20 mg tablet (Lasix) 20 mg PO DAILY #30 tabs 08/23/25 08/27/25 Rx
hydralazine 50 mg tablet 50 mg PO TID #90 tabs 08/23/25 08/27/25 Rx
spironolactone 25 mg tablet 12.5 mg (1/2 x 25 mg) PO DAILY #30 08/23/25 08/27/25 Rx
tabs
rosuvastatin 10 mg tablet (Crestor) 10 mg PO DAILY High Cholesterol 08/27/25 08/27/25 History
Review of Systems
-
History Source: Patient
All other systems: Negative unless noted
Physical Exam
Vital Signs
Temp Pulse Resp BP Pulse Ox
98.2 F 96 16 138/45 93
08/29/25 03:00 08/29/25 12:51 08/29/25 07:03 08/29/25 12:51 08/29/25 08:55
Lab Results
08/29/25 05:50
08/29/25 05:50
Troponin I 0.035 ng/ml H* 08/29/25 11:59
Hpn-I-Dqlxihdvupc Pept 7060 pg/ml 08/29/25 11:59
Physical Exam
General: No Apparent Distress, Comfortable and Other (on supp O2)
HEENT: Normocephalic, Anicteric and Moist Mucous Membranes
Respiratory: Crackles
Cardiac: S1/S2 and Regular Rhythm
GI: Soft, Non Tender, Non Distended and Normal Bowel Sounds
Musculoskeletal: No Clubbing, No Cyanosis and No Edema
Skin: Warm and Dry
Neuro: AO x 3
Impression / Plan
-
Primary White Goods Appliance Tech: Dr. Eng
Assessment:
Presentation with hypoglycemia, weakness
NORBERTO on CKD stage III
Acute on chronic HFpEF
Elevated troponin, suspected nonischemic myocardial injury in setting of above
Admission to [facility] 08/21-08/23/25 for CHF, HTN emergency
[place] mechanical aortic valve 2001
Chronic Coumadin therapy, managed by [facility] [place]
Paroxysmal atrial fibrillation status post PVI 04/2025
CAD
s/p NSTEMI resulting in LAD PCI with residual small RCA disease, medically managed 10/2024 at [facility]
s/p NSTEMI with LAD PCI 05/2025 at [facility]
Solitary kidney status post renal transplant
Chronic immunosuppressed state
Anemia of chronic disease
Diabetes
Hypertension
Echo 08/22/2025: Normal LV size, EF 50%, moderate LVH, normal RV size and function, mechanical aortic valve peak/mean 31/16 mmHg, mild to moderate MR, mild TR, estimated PAP 51 mmHg
Plan:
- Patient presented with hypoglycemia and weakness which started several days after recent discharge 08/23/2025
- On arrival noted to be in acute renal failure with creatinine up to 2.7. Nephrology following. He has history of solitary kidney with prior renal transplant and CKD stage III with baseline creatinine of approximately 1.3
- He was given dextrose with sodium bicarb, and today noted to have shortness of breath with chest pressure. proBNP 7060 today and chest x-ray with pulmonary edema on my review. Ordered dose of IV Lasix 40 mg x 1 and will assess response. dry
weight previously felt to be 159 pounds.
- Patient does relay to me today that he would not go through dialysis again
- continue supp O2, wean as able
- Troponins flat in 0.03�0.04 range, although were negative x 1 last admission. He does have history of CAD as above with LAD PCI 05/2025. EKG sinus rhythm with first-degree AV block, PVCs, lateral ST inversion consistent with prior EKGs from last
admission. Would attempt to manage medically due to NORBERTO as able.
- Patient reportedly with 120 beat run of VT last evening, with patient asymptomatic. On review of telemetry, appears to be artifact. K/mag stable. Will continue to follow on telemetry
- Continue outpatient warfarin, Plavix. INR 2.63 on 08/29. Goal INR 2-3. Hemoglobin 8.5
- recent echo 08/22 as above with preserved EF
- Updated patient's primary continuous mining machine company miner via [place] text
- Amyloid labs were ordered last admission - SPEP and UPEP negative.
- High risk situation
Data Reviewed
-
EKG: Tracing Personally Visualized and interpreted
Radiology: Image Personally Visualized and interpreted
Medical Tests (Nuc Med, Echo etc): Report Reviewed by me
Labs: Labs Reviewed by me
Old Records: Reviewed
[2025-08-29] MEDS: NOVOLOG FLEXPEN-LOW RESISTANCE 1 UNITS SC ×2 (13:50→18:21)
[2025-08-29 13:54] LABS: Magnesium 2.0 mg/dl (1.6-2.3)
[2025-08-29 14:00] LABS: Glucose - Point of Care 156 mg/dl (70-99)
[2025-08-29 17:43] LABS: Glucose - Point of Care 168 mg/dl (70-99)
[2025-08-29] MEDS: COUMADIN 2.5 MG PO (18:21)
[2025-08-29 21:41] LABS: Glucose - Point of Care 161 mg/dl (70-99)
--- NOTE | 2025-08-29 21:49 | PTCARENOTE ---
Caring for pt overnight. aaox3, pleasant. Denies CP. Denies SOB but requested to keep the 2LNC on for comfort. BP stable. OOB to BR no issues. Blood sugars stable 161HS. Will continue to monitor.
[2025-08-30] VITALS (14 sets, daily range): BP systolic 133–150; BP diastolic 45–97; BMI 26.5
[2025-08-30 06:07] LABS: Blood Urea Nitrogen 49 mg/dl (9-20); Calcium 8.2 mg/dl (8.4-10.2); Carbon Dioxide 28 mmol/L (22-30); Chloride 106 mmol/L (98-107); Estimated Creatinine Clearance 33 ml/min; Glucose 113 mg/dl (70-99); Potassium 4.8 mmol/L (3.5-5.1); Sodium 137 mmol/L (135-145); eGFR 35.24
[2025-08-30 06:22] LABS: INR 2.07; PT 23.8 Sec (11.4-14.6)
[2025-08-30] MEDS: MAGNESIUM OXIDE 200 MG PO (07:20)
[2025-08-30] MEDS: PROTONIX 40 MG PO (07:20)
[2025-08-30] MEDS: PLAVIX 75 MG PO (07:20)
[2025-08-30] MEDS: APRESOLINE 50 MG PO ×3 (07:21→20:37)
[2025-08-30] MEDS: MYFORTIC DELAYED REL. 540 MG PO ×2 (07:21→20:37)
[2025-08-30] MEDS: ZOLOFT 25 MG PO (07:21)
[2025-08-30] MEDS: PROGRAF 1 MG PO ×2 (07:21→20:37)
[2025-08-30] MEDS: CRESTOR 10 MG PO (07:21)
[2025-08-30] MEDS: CARDIZEM CD 360 MG PO (07:21)
[2025-08-30] MEDS: HYDREA 500 MG PO (07:22)
[2025-08-30] MEDS: VITAMIN B-12 1000 MCG PO (07:22)
[2025-08-30 07:39] LABS: Glucose - Point of Care 122 mg/dl (70-99)
[2025-08-30] MEDS: NOVOLOG FLEXPEN-LOW RESISTANCE SC ×3 (07:58→17:56)
[2025-08-30] MEDS: TYLENOL 650 MG PO (10:32)
[2025-08-30] MEDS: FLUSH (NSS) 1 FLUSH IV ×2 (10:35→10:36)
--- NOTE | 2025-08-30 12:01 | PTCARENOTE ---
Patient received from hotel night auditor RN. AAOx3 no discomfort at this time. Patient ambulating in room, ordered breakfast. VS within normal limits. Morning meds administered, plan of care discussed for the day.
--- NOTE | 2025-08-30 12:03 | W.PN.NEPH.PH ---
Today's Communication / Plan
-
lasix 40mg x1
Assessment/Plan
-
Assessment
Hypoglycemia
Hypertension
NORBERTO
donor renal transplant
CKD 3A, baseline 1.2
Mechanical AVR
Paroxysmal atrial fibrillation
Coronary artery disease
Essential thrombocytosis
Metabolic acidosis
Elevated troponin
Hypomagnesemia
Hypocalcemia
Plan
NORBERTO-likely prerenal , bland UA, neg US and Fena low 0.34
cr improving to 2, baseline 1.3
off IVF and cont lasix still, wean O2 as able
tacrolimus level 4.4-with in goal
Continue Tac,Myfortic and prednisone
BP stable
Follow BMP
d/w pt and nursing
-
-
Date of Service: August 30, 2025
CC / HPI / ROS
-
Chief Complaint:
NORBERTO h/o KTP
History of Present Illness:
cr better at 2., UOP not measured
BP sable
plt improving to 808, hb stable 8.5 08/29
Review of Systems:
no cp at rest
no SOB at rest, feels well post lasix, still on O2
no n/v
Labs
-
Labs:
WBC 6.0 10^3/uL (4.8-10.8) 08/29/25 05:50
RBC 2.67 10^6/uL (4.70-6.10) L 08/29/25 05:50
Hgb 8.5 g/dL (13.0-18.0) L 08/29/25 05:50
Hct 27.6 % (39.0-52.0) L 08/29/25 05:50
Plt Count 808 10^3/uL (130-400) H 08/29/25 05:50
Sodium 137 mmol/L (135-145) 08/30/25 05:33
Potassium 4.8 mmol/L (3.5-5.1) 08/30/25 05:33
Chloride 106 mmol/L (98-107) 08/30/25 05:33
Carbon Dioxide 28 mmol/L (22-30) 08/30/25 05:33
BUN 49 mg/dl (9-20) H 08/30/25 05:33
Creatinine 2.0 mg/dL (0.7-1.3) H 08/30/25 05:33
eGFR 35.24 08/30/25 05:33
Glucose 113 mg/dl (70-99) H 08/30/25 05:33
Calcium 8.2 mg/dl (8.4-10.2) L 08/30/25 05:33
Vge-Z-Llzvyenqnnl Pept 7060 pg/ml 08/29/25 11:59
Albumin 3.8 g/dl (3.5-5.0) 08/27/25 18:43
Physical Exam
-
Vital Signs:
Vital Signs
Temp Pulse Resp BP Pulse Ox
98.1 F 83 18 149/60 97
08/30/25 07:28 08/30/25 07:28 08/30/25 07:28 08/30/25 07:28 08/30/25 07:28
Cardiovascular:: Regular rate and rhythm
Respiratory:: Bilateral: Coarse
Lung Excursion:: Normal
Abdomen:: Nontender and Soft
Extremity Edema:: None: Bilateral:
Arredondo Catheter: No
--- NOTE | 2025-08-30 12:25 | CM ---
Following up on Patient. Reading Hospitalist Notes, still identify no discharge needs. Will see when the patient is discharging. PLAN: Anticipate Home No Needs.
[2025-08-30 12:58] LABS: Glucose - Point of Care 146 mg/dl (70-99)
[2025-08-30] MEDS: LASIX 40 MG IV (13:52)
--- NOTE | 2025-08-30 14:54 | PN.CDI ---
CDI
- -
CDI:
Physician Documentation Request
Admit Date: 08/27/25 22:21
Dear Doctor Edouard,
Clinical Indicators:
Patient admitted with NORBERTO and concern for acute on chronic HFpEF; PMH includes CKD 3a.
08/29 Cardiology consult,'Elevated troponin, suspected nonischemic myocardial injury...'
08/29 PN, 'Non-DC troponin elevation'
Troponin trend:
08/27/25 08/28/25 08/28/25
18:43 03:08 09:58
Troponin I 0.041 H* 0.038 H* 0.043 H*
08/28/25 08/29/25
13:56 11:59
Troponin I 0.035 H* 0.035 H*
Due to potentially conflicting documentation, please clarify the etiology of the troponin elevation:
Non ischemic myocardial injury
Troponin elevation, clinically insignificant
Other
Use of terms such as suspected, likely, concern for, or probable (associated with a specific diagnosis that is being evaluated, monitored, or treated as if it exists) are acceptable and can be coded in the inpatient setting, when documented at the
time of discharge.
Thank you,
Kathryn Martinez RN
CDI Specialist
Please use your independent medical judgment in providing your response.
--- NOTE | 2025-08-30 15:20 | W.PN.HOSP.TC ---
Today's Communication/Plan
-
Diuresis
Monitoring renal function
Assessment / Plan
Assessment / Plan
Impression:
Symptomatic hypoglycemia.
Concern for acute CHF preserved EF.
NORBERTO
Normal anion gap metabolic acidosis
Reported episode of diarrhea day prior to presentation
Hypomagnesemia
Non-GA troponin elevation
Conditions prior to admission:
Recent hospitalization for acute CHF responded to diuresis. Transitioned and discharged on diuretic regimen including Lasix and spironolactone.
CAD.
� Treated in-stent stenosis of LAD May 2025. On Plavix
Paroxysmal atrial fibrillation
[place] mechanical AVR
Anticoagulation with warfarin
Diabetes, type II
Renal transplant
CKD stage III AA
Chronic immunosuppression.
Chronic macrocytic anemia.
Chronic thrombocytosis
Anxiety/depression
Plan
Persistent and symptomatic hypoglycemia
Diabetes type 2
Recent hemoglobin A1c 5.3.
Had been taking off sulfonylurea over last admission.
LFTs within normal limits
Symptoms improved with IV and oral glucose on presentation.
Random serum cortisol within normal limits
Blood cultures negative to date
Hypoglycemia improved with glucose infusion.
Discussed with the patient, there is a possibility patient took sulfonylurea by mistake causing persistent hypoglycemia in the settings of NORBERTO and decreased renal clearance
Continue regular diet.
Hypoglycemia improved with glucose supplementation
Acute CHF given weight gain around 4 pounds since last admission: Dry weight 75 kg (80 kg on presentation)
Echo 08/22:
1. Normal LV size and low normal function.Ejection fraction is 50% by visual assessment.
2. Moderate left ventricular hypertrophy.
3. Right ventricular size and systolic function are within normal limits.
4. Indexed left atrial volume is severely abnormal (>48 ml/m2).
5. A mechanical aortic valve is in place with mild thickening. Peak gradient 31mmHg/Mean 16mmHg -.
6. Thickened mitral valve leaflets. There are redundant chordal structures and prominent echodensities on the atrial side of the anterior leaflet. Mild to moderate mitral regurgitation. mean gradient 3 mmHg. Could consider LISHA to better evaluate.
7. Mild tricuspid regurgitation. Estimated pulmonary artery pressure of 51 mmHg assuming a right atrial pressure of 8 mmHg.
8. There are no prior studies available for comparison.
On 08/29 with chest pressure and shortness of breath
Weight is up 79 kg
Will hold further fluids.
Improved with IV diuresis initiated on 08/29
Additional Lasix on 08/30
Hold spironolactone, losartan,
Continue diltiazem and hydralazine.
Concerns for NSVT, seems to be an artifact
Repeat magnesium level
Continue telemetry monitoring
Consider addition of beta-matthew
NORBERTO.
CKD stage IIIa baseline creatinine 1.0�1 point
Normal anion gap metabolic acidosis
Renal transplant.
Bladder scan with no retention
UA bland
Renal sonogram with no abnormalities
Ivelisse 0.35
Creatinine trending down with alkalinized IV fluids
Attempt to wean off
Consider renal ultrasound.
Continue Myfortic and Prograf.
Consider alkalinized IV fluids.
CAD.
Recent in-stent stenosis treated.
Continue Plavix, statin.
Paroxysmal atrial fibrillation
Continue diltiazem
AVR.
On anticoagulation with warfarin.
INR on presentation 3.94. Improved to 2.6
Follow daily INR
Continue warfarin adjust dose accordingly.
Continue PPI for GI prophylax
Chronic macrocytic anemia
Chronic thrombocytosis? Primary thrombocytosis?
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
CODE STATUS full code. Confirmed with patient
DVT prophylaxis warfarin
Anticipated Discharge: 24 - 48 hours
Subjective/Interval History
-
Date of Service: August 30, 2025
Objective Data
-
Labs:
Laboratory Results
08/30/25 08/30/25
05:33 05:56
PT Cancelled 23.8 H
INR Cancelled 2.07
Sodium 137
Potassium 4.8
Chloride 106
Carbon Dioxide 28
BUN 49 H
Creatinine 2.0 H
Glucose 113 H
Calcium 8.2 L
Vital Signs:
Vital Signs
Temp Pulse Resp BP Pulse Ox
97.6 F 80 18 135/54 97
08/30/25 11:00 08/30/25 13:52 08/30/25 07:28 08/30/25 13:52 08/30/25 07:28
I&O
08/29/25 08/30/25 08/31/25
06:59 06:59 06:59
Intake Total 1320 / 1320 860 / 860
Output Total 300 / 300
Balance 1320 / 1320 560 / 560
Physical Exam
-
General: Well Developed and No Apparent Distress
HEENT: Normocephalic, Atraumatic and Moist Mucous Membranes
Respiratory: Clear to Auscultation
Cardiac: Regular Rhythm, S1/S2 and Murmur; Negative Rub or Gallop
GI: Soft, Nontender, Nondistended and Normal Bowel Sounds; Negative Organomegaly
Rectal: Deferred by Provider
Musculoskeletal: No Clubbing, No Cyanosis and No Edema
Skin: Negative Rash
Neuro: Nonfocal/Grossly Intact
--- NOTE | 2025-08-30 17:41 | W.PN.CARDCBS ---
Today's Communication / Plan
-
Clinically he is improving. Creatinine overall down to 2.0.
He still appears mildly volume overloaded I agree with Lasix 20 g IV x 1 today.
Abnormal troponin is likely nonischemic myocardial injury.
He is status post LAD PCI May 2025. Cont Crestor
Continue diltiazem, hydralazine, and Plavix.
Impression / Plan
-
Primary Solid Waste Disposal Manager: Dr. Eng
Assessment:
Presentation with hypoglycemia, weakness
NORBERTO on CKD stage III
Acute on chronic HFpEF
Elevated troponin, suspected nonischemic myocardial injury in setting of above
Admission to [facility] 08/21-08/23/25 for CHF, HTN emergency
[place] mechanical aortic valve 2001
Chronic Coumadin therapy, managed by [facility] [place]
Paroxysmal atrial fibrillation status post PVI 04/2025
CAD
s/p NSTEMI resulting in LAD PCI with residual small RCA disease, medically managed 10/2024 at [facility]
s/p NSTEMI with LAD PCI 05/2025 at [facility]
Solitary kidney status post renal transplant
Chronic immunosuppressed state
Anemia of chronic disease
Diabetes
Hypertension
Echo 08/22/2025: Normal LV size, EF 50%, moderate LVH, normal RV size and function, mechanical aortic valve peak/mean 31/16 mmHg, mild to moderate MR, mild TR, estimated PAP 51 mmHg
Plan:
- Patient presented with hypoglycemia and weakness which started several days after recent discharge 08/23/2025
- On arrival noted to be in acute renal failure with creatinine up to 2.7. Nephrology following. He has history of solitary kidney with prior renal transplant and CKD stage III with baseline creatinine of approximately 1.3
- He was given dextrose with sodium bicarb, and today noted to have shortness of breath with chest pressure.
- Patient was given a dose of Lasix 20 g IV today as creatinine continues to improve and is down to 2.0.
- Troponins flat in 0.03�0.04 range, although were negative x 1 last admission. He does have history of CAD as above with LAD PCI 05/2025. EKG sinus rhythm with first-degree AV block, PVCs, lateral ST inversion consistent with prior EKGs from last
admission. Would attempt to manage medically due to NORBERTO as able.
- Patient reportedly with 120 beat run of VT last evening, with patient asymptomatic. On review of telemetry, appears to be artifact. K/mag stable. Will continue to follow on telemetry
- Continue outpatient warfarin, Plavix. INR 2.07 Goal INR 2-3. Hemoglobin 8.5
- recent echo 08/22 as above with preserved EF
- Amyloid labs were ordered last admission - SPEP and UPEP negative.
- High risk situation
Progress Note - Solid Waste Disposal Manager
Subjective
Date of Service: August 30, 2025
Breathing is overall stable. He denies chest pains. Creatinine down to 2.0.
Objective
Labs:
08/29/25 05:50
08/30/25 05:33
Labs
Hgb 8.5 g/dL (13.0-18.0) L 08/29/25 05:50
Hct 27.6 % (39.0-52.0) L 08/29/25 05:50
Plt Count 808 10^3/uL (130-400) H 08/29/25 05:50
PT 23.8 Sec (11.4-14.6) H 08/30/25 05:56
INR 2.07 08/30/25 05:56
Sodium 137 mmol/L (135-145) 08/30/25 05:33
Potassium 4.8 mmol/L (3.5-5.1) 08/30/25 05:33
BUN 49 mg/dl (9-20) H 08/30/25 05:33
Creatinine 2.0 mg/dL (0.7-1.3) H 08/30/25 05:33
Glucose 113 mg/dl (70-99) H 08/30/25 05:33
Troponins
08/27/25 08/28/25 08/28/25
18:43 03:08 09:58
Troponin I 0.041 H* 0.038 H* 0.043 H*
08/28/25 08/29/25 08/29/25
13:56 11:59 19:45
Troponin I 0.035 H* 0.035 H* Cancelled
Vital Signs and I&O:
Vital Signs
Temp Pulse Resp BP Pulse Ox
97.6 F 80 18 135/54 97
08/30/25 11:00 08/30/25 13:52 08/30/25 07:28 08/30/25 13:52 08/30/25 07:28
Vital Signs
Temp Pulse Resp BP Pulse Ox
97.6 F 80 18 135/54 97
08/30/25 11:00 08/30/25 13:52 08/30/25 07:28 08/30/25 13:52 08/30/25 07:28
Intake & Output
08/28/25 08/29/25 08/30/25 08/31/25
06:59 06:59 06:59 06:59
Intake Total 1320 / 1320 860 / 860
Output Total 300 / 300
Balance 1320 / 1320 560 / 560
Physical Exam
Physical Exam
GEN: No distress, awake, Ox3
HEENT: supple, anicteric, mmm
LUNGS: CTA, no wheezes/rales
CV: Reg, S1/S2, 1/6 syst LSB, no murmur
ABD: soft, BS+, NT/ND
EXT: No edema
NEURO: Gross non-focal
SKIN: No rash
[2025-08-30 17:45] LABS: Glucose - Point of Care 145 mg/dl (70-99)
[2025-08-30] MEDS: MELATONIN 5 MG PO (20:37)
[2025-08-30] MEDS: COUMADIN 5 MG PO (20:40)
[2025-08-30 21:19] LABS: Glucose - Point of Care 171 mg/dl (70-99)
[2025-08-31] VITALS (7 sets, daily range): BP systolic 151–169; BP diastolic 54–68; BMI 25.9
[2025-08-31 05:38] LABS: INR 2.14; PT 24.4 Sec (11.4-14.6)
[2025-08-31 05:50] LABS: Blood Urea Nitrogen 46 mg/dl (9-20); Calcium 8.6 mg/dl (8.4-10.2); Carbon Dioxide 29 mmol/L (22-30); Chloride 107 mmol/L (98-107); Estimated Creatinine Clearance 39 ml/min; Glucose 116 mg/dl (70-99); Potassium 5.0 mmol/L (3.5-5.1); Sodium 141 mmol/L (135-145); eGFR 42.83
--- NOTE | 2025-08-31 06:00 | PTCARENOTE ---
Caring for pt overnight. aaox3, pleasant. L foot swelling & crackles L lung. No assessment changes. VSS. placed on 2LNC for desating to 86%. Denies CP or SOB. OOB. Will monitor.
[2025-08-31 08:11] LABS: Glucose - Point of Care 112 mg/dl (70-99)
[2025-08-31] MEDS: NOVOLOG FLEXPEN-LOW RESISTANCE SC ×2 (08:48→12:10)
[2025-08-31] MEDS: VITAMIN B-12 1000 MCG PO (08:49)
[2025-08-31] MEDS: HYDREA 500 MG PO (08:49)
[2025-08-31] MEDS: APRESOLINE 50 MG PO (08:49)
[2025-08-31] MEDS: MAGNESIUM OXIDE 200 MG PO (08:49)
[2025-08-31] MEDS: PROGRAF 1 MG PO (08:50)
[2025-08-31] MEDS: CRESTOR 10 MG PO (08:50)
[2025-08-31] MEDS: PLAVIX 75 MG PO (08:50)
[2025-08-31] MEDS: MYFORTIC DELAYED REL. 540 MG PO (08:50)
[2025-08-31] MEDS: PROTONIX 40 MG PO (08:51)
[2025-08-31] MEDS: ZOLOFT 25 MG PO (08:51)
[2025-08-31] MEDS: CARDIZEM CD 360 MG PO (08:51)
--- NOTE | 2025-08-31 09:49 | W.PN.NEPH.PH ---
Today's Communication / Plan
-
lasix 40mg po daily
Assessment/Plan
-
Assessment
Hypoglycemia
Hypertension
NORBERTO
donor renal transplant
CKD 3A, baseline 1.2
Mechanical AVR
Paroxysmal atrial fibrillation
Coronary artery disease
Essential thrombocytosis
Metabolic acidosis
Elevated troponin
Hypomagnesemia
Hypocalcemia
Plan
follow BMP
lasix 40mg po daily
correction: pt was not on prednisone
dc planning
-
-
Date of Service: August 31, 2025
CC / HPI / ROS
-
Chief Complaint:
NORBERTO h/o KTP
History of Present Illness:
cr better at 1.7
weights down with lasix
BP stable
Review of Systems:
no cp at rest
no SOB at rest
no supplemental O2
no n/v
Labs
-
Labs:
WBC 6.0 10^3/uL (4.8-10.8) 08/29/25 05:50
RBC 2.67 10^6/uL (4.70-6.10) L 08/29/25 05:50
Hgb 8.5 g/dL (13.0-18.0) L 08/29/25 05:50
Hct 27.6 % (39.0-52.0) L 08/29/25 05:50
Plt Count 808 10^3/uL (130-400) H 08/29/25 05:50
Sodium 141 mmol/L (135-145) 08/31/25 04:59
Potassium 5.0 mmol/L (3.5-5.1) 08/31/25 04:59
Chloride 107 mmol/L (98-107) 08/31/25 04:59
Carbon Dioxide 29 mmol/L (22-30) 08/31/25 04:59
BUN 46 mg/dl (9-20) H 08/31/25 04:59
Creatinine 1.7 mg/dL (0.7-1.3) H 08/31/25 04:59
eGFR 42.83 08/31/25 04:59
Glucose 116 mg/dl (70-99) H 08/31/25 04:59
Calcium 8.6 mg/dl (8.4-10.2) 08/31/25 04:59
Btx-R-Vyddiokwtvp Pept 7060 pg/ml 08/29/25 11:59
Albumin 3.8 g/dl (3.5-5.0) 08/27/25 18:43
Physical Exam
-
Vital Signs:
Vital Signs
Temp Pulse Resp BP Pulse Ox
98.5 F 103 20 168/68 91
08/30/25 23:16 08/31/25 08:51 08/31/25 06:00 08/31/25 08:51 08/31/25 06:00
Cardiovascular:: Regular rate and rhythm
Respiratory:: Bilateral: CTA
Lung Excursion:: Normal
Abdomen:: Nontender and Soft
Bowel Sounds:: Normal
Extremity Edema:: None: Bilateral:
[2025-08-31] MEDS: LASIX 40 MG PO (10:37)
--- NOTE | 2025-08-31 12:05 | W.DS.TRANS ---
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
-
Discharge Instructions:
Sleep Apnea Risk Intermediate
Discharge Diagnosis/Procedures Impression:
Symptomatic hypoglycemia.
Acute CHF preserved EF.
NORBERTO
Normal anion gap metabolic acidosis
Reported episode of diarrhea day prior to
presentation
Hypomagnesemia
Non-[place] troponin elevation
Conditions prior to admission:
Recent hospitalization for acute CHF responded
to diuresis. Transitioned and discharged on
diuretic regimen including Lasix and
spironolactone.
CAD.
� Treated in-stent stenosis of LAD May 2025.
On Plavix
Paroxysmal atrial fibrillation
[place] mechanical AVR
Anticoagulation with warfarin
Diabetes, type II
Renal transplant
CKD stage III AA
Chronic immunosuppression.
Chronic macrocytic anemia.
Chronic thrombocytosis
Anxiety/depression
Diet 2 Gram Sodium
Blood Work BMP in one week
Instructions:
Stand-Alone Forms:
Changes to Home Medications: Yes
Discharge Medications:
DC Medications w/original date entered in [facility]
clopidogrel 75 mg tablet 75 mg PO DAILY Blood Clot Prevention/Tx 04/23/25
diltiazem HCl 360 mg capsule,24 hr,extended release 360 mg PO DAILY Heart Disease/Condition 04/23/25
esomeprazole magnesium 40 mg capsule,delayed release 40 mg PO DAILY GERD 04/23/25
hydroxyurea 500 mg capsule 500 mg PO DAILY CHEMO 04/23/25
mycophenolate sodium 180 mg tablet,delayed release 540 mg PO BID Transplant 04/23/25
tacrolimus 1 mg capsule, immediate-release 1 mg PO BID Immunosuppressant Agent 04/23/25
warfarin 2.5 mg tablet 2.5 mg PO [id number]@1900 Blood Clot Prevention/Tx 04/23/25
warfarin 5 mg tablet 5 mg PO [id number]@1900 Blood Clot Prevention/Tx 04/23/25
cholecalciferol (vitamin D3) 50 mcg (2,000 unit) tablet 50 mcg PO DAILY Supplement 06/01/25
magnesium 250 mg tablet 250 mg PO DAILY Supplement 06/01/25
acetaminophen 325 mg tablet (Tylenol) 650 mg PO Q6HPRN PRN mild pain 08/21/25
losartan 100 mg tablet 100 mg PO DAILY Blood Pressure 08/21/25
Held on 08/31/25. Instructions: Resume on 09/07/25.
polyethylene glycol 3350 17 gram oral powder packet (Miralax) 17 g PO DAILYPRN PRN constipation 08/21/25
sertraline 25 mg tablet 25 mg PO DAILY Mental Health/Anxiety 08/21/25
cyanocobalamin (vitamin B-12) 500 mcg tablet (Vitamin B-12) 1,000 mcg (2 x 500 mcg) PO DAILY #30 tabs 08/23/25
hydralazine 50 mg tablet 50 mg PO TID #90 tabs 08/23/25
spironolactone 25 mg tablet 12.5 mg (1/2 x 25 mg) PO DAILY #30 tabs 08/23/25
rosuvastatin 10 mg tablet (Crestor) 10 mg PO DAILY High Cholesterol 08/27/25
furosemide 40 mg tablet 40 mg PO DAILY #30 tabs 08/31/25
Home Medication Changes
Lasix increased.
Hold losartan following outpatient BMP
Pending Results: No
[2025-08-31 12:12] LABS: Glucose - Point of Care 109 mg/dl (70-99)
--- NOTE | 2025-08-31 12:45 | W.PN.CARDCBS ---
Today's Communication / Plan
-
Appears euvolemic on exam
INR goal 2�3 (2.14 today), continue Coumadin, Plavix
Agree with resuming oral Lasix
Impression / Plan
-
Primary Learning Program Manager: Dr. Eng
Assessment:
Presentation with hypoglycemia, weakness
NORBERTO on CKD stage III
Acute on chronic HFpEF, improving
Elevated troponin, suspected nonischemic myocardial injury in setting of above
Admission to [facility] 08/21-08/23/25 for CHF, HTN emergency
[place] mechanical aortic valve 2001
Chronic Coumadin therapy, managed by [facility] [place]
Paroxysmal atrial fibrillation status post PVI 04/2025
CAD
s/p NSTEMI resulting in LAD PCI with residual small RCA disease, medically managed 10/2024 at [facility]
s/p NSTEMI with LAD PCI 05/2025 at [facility]
Solitary kidney status post renal transplant
Chronic immunosuppressed state
Anemia of chronic disease
Diabetes
Hypertension
Echo 08/22/2025: Normal LV size, EF 50%, moderate LVH, normal RV size and function, mechanical aortic valve peak/mean 31/16 mmHg, mild to moderate MR, mild TR, estimated PAP 51 mmHg
Plan:
- Patient presented with hypoglycemia and weakness which started several days after recent discharge 08/23/2025
- On arrival noted to be in acute renal failure with creatinine up to 2.7. Nephrology following. He has history of solitary kidney with prior renal transplant and CKD stage III with baseline creatinine of approximately 1.3, improving to 1.7 today
- He was given dextrose with sodium bicarb, and today noted to have shortness of breath with chest pressure.
- Patient was given a dose of Lasix 20 g IV; resuming lasix 40 mg PO daily
- Troponins flat in 0.03�0.04 range, although were negative x 1 last admission. He does have history of CAD as above with LAD PCI 05/2025. EKG sinus rhythm with first-degree AV block, PVCs, lateral ST inversion consistent with prior EKGs from last
admission. Would attempt to manage medically due to NORBERTO as able.
- Patient reportedly with 120 beat run of VT last evening, with patient asymptomatic. On review of telemetry, appears to be artifact. K/mag stable. Will continue to follow on telemetry
- Continue outpatient warfarin, Plavix. INR 2.07 -> improved to 2.14 Goal INR 2-3. Hemoglobin 8.5
- recent echo 08/22 as above with preserved EF
- Amyloid labs were ordered last admission - SPEP and UPEP negative.
- High risk situation
- No further recommendations from CV standpoint, we will sign off. Please call with questions. Patient needs close follow-up with his primary life teacher, Dr. Liseth Eng.
Progress Note - Learning Program Manager
Subjective
Date of Service: August 31, 2025
Patient seen and examined's morning. No acute events overnight. Patient resting comfortably chair. Patient is a chest pain, shortness breath, palpitations, edema or weakness. Telemetry demonstrates sinus rhythm with rare PVCs. INR 2.14 today
Objective
Labs:
08/29/25 05:50
08/31/25 04:59
Labs
Hgb 8.5 g/dL (13.0-18.0) L 08/29/25 05:50
Hct 27.6 % (39.0-52.0) L 08/29/25 05:50
Plt Count 808 10^3/uL (130-400) H 08/29/25 05:50
PT 24.4 Sec (11.4-14.6) H 08/31/25 04:59
INR 2.14 08/31/25 04:59
Sodium 141 mmol/L (135-145) 08/31/25 04:59
Potassium 5.0 mmol/L (3.5-5.1) 08/31/25 04:59
BUN 46 mg/dl (9-20) H 08/31/25 04:59
Creatinine 1.7 mg/dL (0.7-1.3) H 08/31/25 04:59
Glucose 116 mg/dl (70-99) H 08/31/25 04:59
Troponins
08/28/25 08/29/25 08/29/25
13:56 11:59 19:45
Troponin I 0.035 H* 0.035 H* Cancelled
Vital Signs and I&O:
Vital Signs
Temp Pulse Resp BP Pulse Ox
98.5 F 92 26 154/57 98
08/30/25 23:16 08/31/25 10:37 08/31/25 10:36 08/31/25 10:37 08/31/25 10:36
Vital Signs
Temp Pulse Resp BP Pulse Ox
98.5 F 92 26 154/57 98
08/30/25 23:16 08/31/25 10:37 08/31/25 10:36 08/31/25 10:37 08/31/25 10:36
Intake & Output
08/29/25 08/30/25 08/31/25 09/01/25
06:59 06:59 06:59 06:59
Intake Total 1320 / 1320 860 / 860 360 / 360
Output Total 300 / 300 325 / 325 580 / 580
Balance 1320 / 1320 560 / 560 -325 / -325 -220 / -220
Physical Exam
Physical Exam
GEN: No distress, awake, Ox3
HEENT: supple, anicteric, mmm
LUNGS: CTA, no wheezes/rales
CV: Reg, S1/S2, 1/6 syst LSB, no murmur
ABD: soft, BS+, NT/ND
EXT: No edema
NEURO: Gross non-focal
SKIN: No rash
--- NOTE | 2025-08-31 12:58 | CM ---
Following up on Patient. Hospitalist stated patient is discharging and MICHELLE Hagen identified no needs. IMM Completed.
== END 2025-08-31 16:00 | disposition home or self-care (01) | DRG 698 ==
LOC: IMU 22:21
PROVIDERS: Emergency Medicine; Registered Nurse; ADMITTING PHYSICIAN Hospitalist; ATTENDING PHYSICIAN Internal Medicine; CONSULT PHYSICIAN Nuclear Medicine Nuclear Cardiology; CONSULT PHYSICIAN Specialist; EMERGENCY PHYSICIAN Emergency Medicine; FAMILY PHYSICIAN Family Medicine
DX: T86.19 Other complication of kidney transplant (principal); I50.33 Acute on chronic diastolic (congestive) heart failure; E87.20 Acidosis, unspecified; I5A Non-ischemic myocardial injury (non-traumatic); I13.0 Hypertensive heart and chronic kidney disease with heart failure and stage 1 through stage 4 chronic kidney disease, or unspecified chronic kidney disease; I47.20 Ventricular tachycardia, unspecified; D84.821 Immunodeficiency due to drugs; N17.9 Acute kidney failure, unspecified; N18.31 Chronic kidney disease, stage 3a; E11.22 Type 2 diabetes mellitus with diabetic chronic kidney disease; E11.649 Type 2 diabetes mellitus with hypoglycemia without coma; Y83.0 Surgical operation with transplant of whole organ as the cause of abnormal reaction of the patient, or of later complication, without mention of misadventure at the time of the procedure; E83.42 Hypomagnesemia; I48.0 Paroxysmal atrial fibrillation; Z95.2 Presence of prosthetic heart valve; D50.9 Iron deficiency anemia, unspecified; F32.A Depression, unspecified; F41.9 Anxiety disorder, unspecified; D75.839 Thrombocytosis, unspecified; R79.1 Abnormal coagulation profile; I25.10 Atherosclerotic heart disease of native coronary artery without angina pectoris; Z79.01 Long term (current) use of anticoagulants; Z79.02 Long term (current) use of antithrombotics/antiplatelets; Z79.60 Long term (current) use of unspecified immunomodulators and immunosuppressants; Z79.899 Other long term (current) drug therapy; I25.2 Old myocardial infarction; D63.1 Anemia in chronic kidney disease; I44.0 Atrioventricular block, first degree; D47.3 Essential (hemorrhagic) thrombocythemia; D53.9 Nutritional anemia, unspecified; E78.00 Pure hypercholesterolemia, unspecified; E83.51 Hypocalcemia; K21.9 Gastro-esophageal reflux disease without esophagitis
CPT/HCPCS: 71045; 71046; 76776; 80048; 80053; 80061; 80197; 81003; 81015; 82533; 82570; 82962; 83735; 83880; 84300; 84443; 84484; 85025; 85027; 85610; 87040; 87086; 93005; 96360; 97162; 97166; 99285

== ENCOUNTER → 2025-11-19 06:43 | Outpatient (REF) | payer MEDICARE, SELFPAY ==
[2025-11-19 07:11] LABS: Hematocrit 32.1 % (39.0-52.0); Hemoglobin 9.9 g/dL (13.0-18.0); Mean Corp Hgb Conc. 30.8 g/dL (33.0-37.0); Mean Corpuscular Volume 107.0 fL (80.0-94.0); Nucleated Red Blood Cells % 0.3 % (-); Platelet Count 580 10^3/uL (130-400); Red Cell Dist. Width 16.9 % (11.5-14.5)
[2025-11-19 07:20] VITALS: BP 152/58; BP_SYST 73
[2025-11-19 07:25] VITALS: BMI 23.9
[2025-11-19 07:30] LABS: INR 2.22; PT 24.8 Sec (11.4-14.6)
[2025-11-19] MEDS: ATIVAN 0.5 MG PO (08:22)
[2025-11-19 09:01] VITALS: BP 136/57; BP_SYST 66
[2025-11-19 09:20] VITALS: BP 123/58
== END ==
LOC: RADI 06:43
PROVIDERS: ATTENDING PHYSICIAN Internal Medicine Hematology & Oncology; FAMILY PHYSICIAN Family Medicine; REFERRING PHYSICIAN Physician Assistant
DX: D47.3 Essential (hemorrhagic) thrombocythemia (principal)
CPT/HCPCS: 36415; 38222; 77012; 85025; 85610; 88305; 88311; 88312; 88313